=== PATIENT | female | born 2005 | race Caucasian/White ===

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

== ENCOUNTER 2024-04-05 14:36 | Emergency (ER) | payer OTHER ==
--- OUTSIDE RECORDS SUMMARY | 2024-04-05 14:41 | XMS REPORT | Continuity of Care Document ---
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 Role Phone PCP, PATIENT DOES NOT HAVE A Primary Care Physic SULMA Drummond Attending Clinician Unavailable GAVIN RIVERA Attending Clinician GAVIN Bradley Attending Clinician Andrea landry Payers Payer Name Policy Type Policy Number Effective Date Expirati on Date Source [facility] [id number] 2022 00:00:00 Allergies, Adverse Reactions, Alerts Allergy Name Allergy Type Status Severity Reaction(s) Onset Date Inactive Date Treating Clinician Comments Source NO KNOWN ALLERGIE S Drug Class Active [facility] Encounters Start Date/Time End Date/Time Encounter Type Admission Type Attending Clinicians Care Facility Care Department Encounter ID Source 2023-12-26 14:30:00 2023-12-26 14:30:00 Outpatient SULMA ANGELES [facility] [id number] [facility] 2022-11-29 15:30:00 2022-11-29 15:30:00 Outpatient GAVIN GONZALEZ CHERYAL [facility] [id number] [facility]
--- NOTE | 2024-04-05 15:45 | RAD REPORT ---
EXAM: Transvaginal OB HISTORY: abd pain, 8w COMPARISON: None TECHNIQUE: Multiple grayscale and color Doppler images were obtained in a transvaginal pelvic ultraso und. Spectral analysis of the Doppler waveforms of the ovaries were performed. FINDINGS: UTERUS: There is an intrauterine gestational sac. This contains a yolk sac and pole. [place]-rump length: 0.4 cm which estimates gestational age at 6 week 1 day. A heart rate is detected at 123 bpm. Small subchorionic hemorrhage No free fluid is seen in the pelvis. RIGHT OVARY: Normal flow without focal mass. LEFT OVARY: Normal flow without focal mass. IMPRESSION: Single live intrauterine with estimated age of 6 week 1 day. Small subchorionic hemorrhage which is usually of little significance.
[2024-04-05 17:04] LABS: Absolute Eosinophils 0.1 K/uL (0-0.5); Absolute Lymphocytes (CBC) 1.6 K/uL (0.7-4.9); Absolute Monocytes 0.8 K/uL (0.1-1.3); Absolute Neutrophil 5.2 K/uL (1.8-8.0); Basophils % 0.5 % (0-1.3); Eosinophils % 1.2 % (0-4.4); Hematocrit 39.8 % (36.0-45.0); Hemoglobin 13.7 g/dL (12.0-15.0); Lymphocytes % 21.1 % (15.3-44.8); MCH 30.8 pg (27.0-35.0); MCHC 34.4 g/dL (32.0-36.0); MCV 89.5 fL (80-100); MPV 9.3 fL (7.6-11.3); Neutrophils % 67.2 % (41.7-73.7); Platelets 228 thou/uL (152-406); RBC Red Blood Cell Count 4.45 M/uL (3.86-4.86); Red Cell Distribution Width 13.2 % (12.1-15.2)
[2024-04-05 17:26] LABS: Specific Gravity 1.007 (1.005-1.030); Sqamous Epithelial <5 /HPF (None Seen); Urine Bacteria <20 /HPF (<20); Urine Bilirubin NEGATIVE (Negative); Urine Blood Negative (Negative); Urine Clarity Turbid (Clear); Urine Color Light-Yellow (Yellow); Urine Culture Reflex Order NOT NEEDED; Urine Glucose NEGATIVE (Negative); Urine Ketones NEGATIVE (Negative); Urine Micro Reflex YN NO BILL MICROSCOPIC; Urine Nitrite NEGATIVE (Negative); Urine Protein NEGATIVE (Negative); Urine RBC <5 /HPF (None Seen); Urine Urobilinogen Normal (Normal); Urine WBC <5 /HPF (<5); Urine WBC Clump Rare /HPF (None Seen); Urine Yeast (Budding) Trace /HPF (None Seen); Urine pH 6.5 (5.0-7.0)
[2024-04-05 17:36] LABS: Anion Gap 8.5 mEq/L (5.0-15.0); Potassium 3.5 mEq/L (3.5-5.1)
--- NOTE | 2024-04-05 20:03 | ER ---
Nurse's Notes [facility] Name: Vandana Lynn Age: 19 yrs Sex: Female : 2005 Arrival Date: 04/05/2024 Time: 14:36 Bed 11 Private MD: Diagnosis: 6 Weeks ;Subchorionic Hemorrhage Presentation: 04/05 15:02 Chief complaint: Patient states: positive test on 03/20/2024. Reports having aa5 lower abdominal pain that began today, denies vaginal bleeding. Coronavirus screen: At this time, the client does not indicate any symptoms associated with coronavirus-19. Ebola Screen: Patient denies travel to an Ebola-affected area in the 21 days before illness onset. Initial Sepsis Screen: Does the patient meet any 2 criteria? No. Patient's initial sepsis screen is negative. Does the patient have a suspected source of infection? No. Patient's initial sepsis screen is negative. Risk Assessment: Do you want to hurt yourself or someone else? Patient reports no desire to harm self or others. Onset of symptoms was April 05, 2024. 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 - Infectious Disease History:: Denies. - Social history:: Smoking status: Reported history of juuling and/or vaping. Screenin:00 [facility] ED Fall Risk Assessment (Adult) History of falling in the last 3 months, me1 including since admission No falls in past 3 months (0 pts) Confusion or Disorientation No (0 pts) Intoxicated or Sedated No (0 pts) Impaired Gait No (0 pts) Mobility Assist Device Used No (0 pt) Altered Elimination No (0 pt) Score/Fall Risk Level 0 - 2 = Low Risk Maintained a safe environment, Provided non-skid footwear, Hourly rounding (assess needs \T\ fall precautionary measures) done. Abuse screen: Denies threats or abuse. Nutritional screening: No deficits noted. Tuberculosis screening: No symptoms or risk factors identified. Assessment: 17:00 General: Appears comfortable, well groomed, well developed, well nourished, Behavior is me1 calm, cooperative, appropriate for age, Reports positive test on 03/20/2024. Reports having lower abdominal pain that began today, denies vaginal bleeding. Pain: Complains of pain in suprapubic area Pain does not radiate. Pain currently is 3 out of 10 on a pain scale. Quality of pain is described as crampy, Pain began gradually, Is continuous. Neuro: Level of Consciousness is awake, alert, obeys commands, Oriented to person, place, time, situation, Appropriate for age. Cardiovascular: Patient's skin is warm and dry. Respiratory: Airway is patent Respiratory effort is even, unlabored, Respiratory pattern is regular, symmetrical. GI: Abdomen is non-distended, Bowel sounds present X 4 quads. Abd is soft X 4 quads Reports lower abdominal pain. : No signs and/or symptoms were reported regarding the genitourinary system. EENT: No signs and/or symptoms were reported regarding the EENT system. Derm: Skin is intact, is healthy with good turgor, Skin is pink, warm \T\ dry. Musculoskeletal: No signs and/or symptoms reported regarding the musculoskeletal system. Vital Signs: 15:02 BP 129 / 84; Pulse 83; Resp 18; Temp 97.5(TE); Pulse Ox 97% on R/A; Weight 60.78 kg aa5 (R); Height 5 ft. 4 in. (R); 20:08 BP 112 / 55; Pulse 57; Resp 18; Temp 98.4; Pulse Ox 100% ; me1 15:02 Body Mass Index 23.00 (60.78 kg, 162.56 cm) aa5 ED Course: 14:39 Patient arrived in ED. mg5 14:48 Jayjay Balbuena MD is Attending Physician. ec2 15:02 Arm band placed on. aa5 15:03 Triage completed. aa5 15:40 Transvaginal OB US In Process Unspecified. EDMS 16:55 Ngoc Costa, PITER is Primary Nurse. me1 16:56 HCG-Quantitative Sent. nh2 16:56 BMP Sent. nh2 16:56 CBC with Diff Sent. nh2 16:56 Inserted saline lock: 20 gauge in right antecubital area, using aseptic technique. nh2 Blood collected. Flushed with 10 mL NS. 17:00 Patient has correct armband on for positive identification. Bed in low position. Call me1 light in reach. Side rails up X2. Provided Education on: POC. Verbalized understanding . Client placed on continuous cardiac and pulse oximetry monitoring. NIBP monitoring applied. Pulse ox on. NIBP on. 17:00 No provider procedures requiring assistance completed. me1 18:12 Seth Chery PA is PHCP. cp 18:59 Abo/rh Typing Sent. me1 19:20 Abo/rh Typing Sent. me1 20:09 IV discontinued, intact, bleeding controlled, No redness/swelling at site. Pressure me1 dressing applied. Administered Medications: No medications were administered Medication: 17:00 VIS not applicable for this client. me1 Outcome: 20:02 Discharge ordered by . cp 20:09 Discharged to home ambulatory, with significant other, me1 20:09 Condition: stable 20:09 Discharge instructions given to patient, significant other, Instructed on discharge instructions, follow up and referral plans. Demonstrated understanding of instructions, follow-up care, 20:09 Patient left the ED. me1 Signatures: Dispatcher [employer] Brenda Booker, RN RN aa5 Seth Chery PA PA cp Ngoc Costa RN RN me1 Paulette Davis mg5 Jayjay Balbuena MD MD ec2 Demetris Easley, Raheem nh2 Corrections: (The following items were deleted from the chart) 17:38 15:02 Chief complaint: Patient states: positive test on 03/20/2024. Reports me1 having lower abdominal pain that began today, denies vaginal bleeding. aa5
--- NOTE | 2024-04-05 20:03 | EDPHYS ---
Physician Documentation [facility] Name: Vnadana Lynn Age: 19 yrs Sex: Female : 2005 Arrival Date: 04/05/2024 Time: 14:36 Bed 11 Private MD: ED Physician Jayjay Balbuena HPI: 04/05 15:33 This 19 yrs old Female presents to ER via Ambulatory with complaints of [id number], ec2 Abdominal Pain, Pelvic Pain. 15:33 Arrives today due to concern for pelvic pain in the setting of positive at-home ec2 test at approximately 2 to 3 weeks ago. No vaginal bleeding. No previous care.. 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 - Infectious Disease History:: Denies. - Social history:: Smoking status: Reported history of juuling and/or vaping. ROS: 15:33 Constitutional: as per hpi ec2 Exam: 15:33 Constitutional: GEN: NAD Head: atraumatic Eyes: EOMI Ears: External ears are ec2 normal. CV: regular rate LUNGS: no respiratory distress ABD: non-distended SKIN: no evidence of rashes MSK: no evidence of trauma Vital Signs: 15:02 BP 129 / 84; Pulse 83; Resp 18; Temp 97.5(TE); Pulse Ox 97% on R/A; Weight 60.78 kg aa5 (R); Height 5 ft. 4 in. (R); 20:08 BP 112 / 55; Pulse 57; Resp 18; Temp 98.4; Pulse Ox 100% ; me1 15:02 Body Mass Index 23.00 (60.78 kg, 162.56 cm) aa5 MDM: 15:33 Data reviewed: vital signs. ED course: Patient arrives today for pelvic pain in the ec2 setting of positive at-home test. Will obtain lab work and ultrasound. Differential includes normal , ectopic , miscarriage.. 15:40 Medical Screening Exam initiated ec2 16:43 ED course: Ultrasound shows single live IUP at approximately 6 weeks and 5 days and ec2 small subchorionic hemorrhage.. 17:47 ED course: Lab work is unrevealing, pending ABO Rh.. ec2 18:10 ED course: With time patient with pending ABO Rh.. ec2 04/05 14:49 Order name: UAM; Complete Time: 17:38 ec2 04/05 14:49 Order name: CBC with Diff; Complete Time: 17:20 ec2 04/05 14:49 Order name: BMP; Complete Time: 18:10 ec2 04/05 14:49 Order name: HCG-Quantitative; Complete Time: 18:10 ec2 04/05 17:38 Order name: Abo/rh Typing; Complete Time: 20:01 ec2 04/05 14:49 Order name: Transvaginal OB US; Complete Time: 16:42 ec2 Administered Medications: No medications were administered Disposition Summary: 04/05/24 20:02 Discharge Ordered Notes: Location: Home cp Condition: Stable cp Diagnosis - 6 Weeks cp - Subchorionic Hemorrhage cp Followup: ec2 - With: Private Physician - When: - Reason: Re-evaluation by your physician Discharge Instructions: - Subchorionic Hematoma cp - Discharge Summary Sheet ec2 - First Trimester of , Oiem-bi-Lhio ec2 Forms: - Medication Reconciliation Form cp - Antibiotic Education cp - Prescription Opioid Use cp - Patient Portal Instructions cp - Leadership Thank You Letter cp Signatures: Dispatcher [employer] Brenda Booker RN RN aa5 Seth Chery PA PA cp Jayjay Balbuena MD MD ec2 Corrections: (The following items were deleted from the chart) 14:49 14:49 Urinalysis W/Microscopic+U.LAB.BRZ ordered. EDMS EDMS 14:49 14:49 CBC+H.LAB.BRZ ordered. EDMS EDMS 14:49 14:49 BASIC METABOLIC PANEL+C.LAB.BRZ ordered. EDMS EDMS 14:49 14:49 QUANTITATIVE HCG+C.LAB.BRZ ordered. EDMS EDMS 14:50 14:50 Transvaginal Ob+US.RAD.BRZ ordered. EDMS EDMS
[2024-04-05 20:57] VITALS: BP 112/55; TEMP 98.4; O2SAT 100
== END 2024-04-05 20:09 | disposition home or self-care (01) ==
LOC: ER 14:36
DX: O20.8 Other hemorrhage in early pregnancy (principal); Z3A.01 Less than 8 weeks gestation of pregnancy
CPT/HCPCS: 36415; 76817; 80048; 81001; 84702; 85025; 86900; 86901; 99284

== ENCOUNTER 2024-07-15 15:48 | Emergency (ER) | payer OTHER ==
--- OUTSIDE RECORDS SUMMARY | 2024-07-15 15:52 | XMS REPORT | Continuity of Care Document ---
Author Name Unknown Address [address] [facility] [address] [place] [address] [facility] thconnect Address [address] [facility] 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 Role Phone Pcp, Patient Does Not Have A Primary Care Physic mason ALAINA BULL Attending Clinician Unavail able Adela WHAlaina VILLAFUERTE Attending Clinician + Ultrasound, Lauro-Mfm Attending Clinician HARINDER Clark Attending Clinician UnavailSULMA Rogers Attending Clinician GAVIN Cortes Attending Clinician GAVIN Bradley Attending Clinician Andrea landry Payers Payer Name Policy Type Policy Number Effective Date Expirati on Date Source [facility] [id number] 2022 00:00:00 Problems Condition Name Condition Details Condition Category Status Onset Date Resolution Date Last Treatment Date Treating Clinician Comments Source Supervisio n of high risk in first trimester Supervisio n of high risk in first trimester Disease Active 2023-06 00:00: 00 [facility] Allergies, Adverse Reactions, Alerts Allergy Name Allergy Type Status Severity Reaction(s) Onset Date Inactive Date Treating Clinician Comments Source NO KNOWN ALLERGIE S Drug Class Active [facility] Social History Social Habit Start Date Stop Date Quantity Comments Source ASSERTION 2024-03-03 00:00:00 [facility] Alcoholic beverage intake 2024-06-27 00:00:00 2024-06-27 00:00:00 Ex-drinker (finding) [facility] Tobacco use and exposure 2024-04-30 00:00:00 2024-04-30 00:00:00 Smokeless tobacco non-user [facility] History of Social function 2024-04-30 00:00:00 2024-04-30 00:00:00 [facility] Sex assigned at 2005 00:00:00 2005 00:00:00 [facility] Smoking Status Start Date Stop Date Source Never smoked tobacco [facility] Medications Ordered Medication Name Filled Medication Name Start Date Stop Date Current Medication? Ordering Clinician Indication Dosage Frequency Signature (SIG) Comments Components Source Nitrofurant oin&Nit. Macrocryst (MACROBID) 100 mg capsule 2023-06 00:00: 00 06-07 05:59 :00 Yes [id number] 100mg Take 1 capsule by mouth in the morning and 1 capsule in the evening. Do all this for 10 days. [facility] PNV 67-iron ps-folate no.1-dha (VITAFOL ULTRA) 29 mg iron- 1 mg-200 mg Cap 2023-06 00:00: 00 Yes [id number] 1{each} Take 1 Each by mouth in the morning. [facility] Vital Signs Vital Name Observation Time Observation Value Comments S ource Systolic blood pressure 2024-06-27 21:03:00 134 mm[Hg] [facility] Diastolic blood pressure 2024-06-27 21:03:00 63 mm[Hg] [facility] Heart rate 2024-06-27 21:03:00 62 /[facility] Body temperature 2024-06-27 21:03:00 36.94 Rosalind [facility] Respiratory rate 2024-06-27 21:03:00 16 /min [facility] Body height 2024-06-27 21:03:00 162.6 cm [facility] Body weight 2024-06-27 21:03:00 65.953 kg [facility] BMI 2024-06-27 21:03:00 24.96 kg/m2 [facility] Systolic blood pressure 2024-05-27 20:11:00 136 mm[Hg] [facility] Diastolic blood pressure 2024-05-27 20:11:00 78 mm[Hg] [facility] Heart rate 2024-05-27 20:11:00 80 /min [facility] Body temperature 2024-05-27 20:11:00 36.5 Rosalind [facility] Respiratory rate 2024-05-27 20:11:00 16 /min [facility] Body weight 2024-05-27 20:11:00 63.186 kg [facility] BMI 2024-05-27 20:11:00 23.91 kg/m2 [facility] BMI 2024-04-30 19:19:00 23.17 kg/m2 [facility] Systolic blood pressure 2024-04-30 19:19:00 124 mm[Hg] [facility] Diastolic blood pressure 2024-04-30 19:19:00 58 mm[Hg] [facility] Heart rate 2024-04-30 19:19:00 61 /min [facility] Body temperature 2024-04-30 19:19:00 36.61 Rosalind [facility] Respiratory rate 2024-04-30 19:19:00 16 /min [facility] Body height 2024-04-30 19:19:00 162.6 cm [facility] Body weight 2024-04-30 19:19:00 61.236 kg [facility] Procedures Procedure Date / Time Performed Performing Clinicia n Source POCT URINALYSIS 2024-06-27 21:05:00 Alaina Bull [facility] SECOND AND THIRD TRIMESTER ULTRASOUND 2024-06-12 21:11:00 Alaina Bull [facility] POCT URINALYSIS 2024-05-27 00:00:00 Alaina Bull [facility] POCT TEST 2024-04-30 19:12:00 Brent Bull [facility] POCT URINALYSIS W/O SPECIFIC GRAVITY 2024-04-30 19:12:00 Alaina Bull [facility] Encounters Start Date/Time End Date/Time Encounter Type Admission Type Attending [facility] Care Facility Care Department Encounter ID Source 2024-07-15 00:00:00 2024-07-15 13:41:55 Telephone Alaina Bull [facility] [employer] [id number] [id number] [id number] [id number] [facility] 2024-06-27 15:00:00 2024-06-27 15:15:00 Routine Visit Alaina Bull [facility] [employer] [facility] [id number] [id number] [id number] [id number] [facility] 2024-06-27 15:00:00 2024-06-27 15:00:00 Outpatient R ALAINA BULL [facility] [id number] [facility] 2024-06-25 14:45:00 2024-06-25 14:45:00 Outpatient R ALAINA BULL [facility] [id number] [facility] 2024-06-13 00:00:00 2024-06-13 11:56:15 Abstract Alaina Bull [facility] [employer] [facility] [id number] [id number] [id number] [id number] [facility] 2024-06-12 15:00:00 2024-06-12 15:36:53 Patient Care Visit Ultrasound, Ang-Mfm Alaina Bull [facility] [employer] [facility] 1..840.114 350.1.13.10 [id number] [id number] [facility] 2024-06-12 15:00:00 2024-06-12 15:36:53 Outpatient P JANICE BULLOLA [facility] [id number] [facility] 2024-05-27 14:15:00 2024-05-27 14:48:42 Outpatient R TYLERTADEORADHA ALAINA [facility] [id number] [facility] 2024-05-27 14:15:00 2024-05-27 14:48:42 Routine Visit Alaina Bull PAPRISCILA [employer] [facility] 1..840.114 350.1.13.10 [id number] [id number] [facility] 2024-05-15 00:00:00 2024-05-15 14:30:06 Telephone Adela Alaina Dao [facility] [employer] [facility] 1..840.114 350.1.13.10 [id number] [id number] [facility] 2024-05-07 00:00:00 2024-05-07 14:57:00 Telephone Alaina Bull PAPRISCILA [employer] [facility] 1..840.114 350.1.13.10 [id number] [id number] [facility] 2024-04-30 13:45:00 2024-04-30 14:14:52 Outpatient R TYLERTADEORADHAAJNICEALAINA [facility] [id number] [facility] 2024-04-30 13:45:00 2024-04-30 14:14:52 Initial Visit Alaina Bull PAPRISCILA [employer] [facility] 1..840.114 350.1.13.10 [id number] [id number] [facility] 2024-04-22 13:45:00 2024-04-22 13:45:00 Outpatient R HARINDER BAUTISTA [facility] [id number] [facility] 2023-12-26 14:30:00 2023-12-26 14:30:00 Outpatient R SULMA ARANGO [facility] [id number] [facility] 2022-11-29 15:30:00 2022-11-29 15:30:00 Outpatient R GAVIN RIVERA CHERYAL [facility] [id number] [facility] Results Test Description Test Time Test Comments Results Result Co mments Source [facility] W SPECIFIC [id number] 20:12:00* Test Item Value Reference Range Interpretation Comme nts POCT U SP GRAV (test code = 3255) . 1.005-1.025 POCT PH U (test code = 3254) . 5-8 POCT U LEUK EST (test code = 3263) . Negative - N egative POCT U NIT (test code = 3262) . Negative - Negati ve POCT U PROT (test code = 3259) trace Negative - Negat chandan POCT U GLU (test code = 3256) normal Negative - Negati ve POCT U KETONE (test code = 3258) . Negative - Neg ative POCT U UROBILI (test code = 3260) . 0.2-1 POCT U BILI (test code = 3261) . Negative - Negat chandan POCT U BLD (test code = 3257) . Negative - Negati ve POCT U COLOR (test code = 3266) . POCT U APPEAR (test code = 3267) . [facility] w/o Specific [id number] 19:12:00* Test Item Value Reference Range Interpretation Comme nts POCT PH U (test code = 3254) 7 mg/dl 5-8 POCT U LEUK EST (test code = 3263) trace Negative - Negative POCT U NIT (test code = 3262) + Negative - Negati ve POCT U PROT (test code = 3259) trace Negative - Negat chandan POCT U GLU (test code = 3256) neg Negative - Negati ve POCT U KETONE (test code = 3258) neg Negative - Neg ative POCT U BLD (test code = 3257) 250 Negative - Negati ve [facility] [id number] 19:12:00* Test Item Value Reference Range Interpretation Comme nts POCT PREG (test code = 1605) Positive On board controls acceptable with C Line (test code = 3574) Yes POCT PREG LOT # (test code = 3575) POCT PREG TEST DATE ( test code = 3576) [facility]
[2024-07-15 16:50] LABS: Absolute Eosinophils 0.1 K/uL (0-0.5); Absolute Lymphocytes (CBC) 1.3 K/uL (0.7-4.9); Absolute Monocytes 0.8 K/uL (0.1-1.3); Absolute Neutrophil 7.8 K/uL (1.8-8.0); Basophils % 0.2 % (0-1.3); Eosinophils % 0.7 % (0-4.4); Hematocrit 33.5 % (36.0-45.0); Hemoglobin 11.8 g/dL (12.0-15.0); Lymphocytes % 12.7 % (15.3-44.8); MCH 31.5 pg (27.0-35.0); MCHC 35.3 g/dL (32.0-36.0); MCV 89.3 fL (80-100); MPV 8.6 fL (7.6-11.3); Monocytes % 7.8 % (3.3-12.3); Neutrophils % 78.6 % (41.7-73.7); Platelets 189 thou/uL (152-406); RBC Red Blood Cell Count 3.75 M/uL (3.86-4.86); Red Cell Distribution Width 14.5 % (12.1-15.2)
--- NOTE | 2024-07-15 16:59 | RAD REPORT ---
Abdomen Exam Limited: 07/15/2024 4:53 PM CLINICAL HISTORY: epigastric abd pain, eval for cholelithiasis STUDY: Limited right upper quadrant ultrasound of abdomen. COMPARISON: None. FINDINGS: Liver: Limited evaluation but grossly unremarkable. Bile ducts: No intrahepatic or extrahepatic biliary ductal dilatation. Common bile duct measures 3 mm. Gallbladder: Normal. IMPRESSION: Unremarkable exam.
[2024-07-15 17:11] LABS: Albumin 3.1 g/dL (3.4-5.0); Albumin/Globulin Ratio 0.9 (1.1-1.8); Anion Gap 11.2 mEq/L (5.0-15.0); Bilirubin Total 0.3 mg/dL (0.2-1.0); Globulin 3.6 g/dL (2.3-3.5); Potassium 3.2 mEq/L (3.5-5.1); Protein, Total 6.7 g/dL (6.4-8.2)
--- NOTE | 2024-07-15 17:50 | ER ---
Nurse's Notes [facility] Name: Vandana Lynn Age: 19 yrs Sex: Female : 2005 Arrival Date: 07/15/2024 Time: 15:48 Bed 13 Private MD: Diagnosis: Other cholelithiasis without obstruction Presentation: 07/15 16:15 Coronavirus screen: At this time, the client does not indicate any symptoms associated aa5 with coronavirus-19. Ebola Screen: Patient denies travel to an Ebola-affected area in the 21 days before illness onset. Initial Sepsis Screen: Does the patient meet any 2 criteria? No. Patient's initial sepsis screen is negative. Does the patient have a suspected source of infection? No. Patient's initial sepsis screen is negative. Risk Assessment: Do you want to hurt yourself or someone else? Patient reports no desire to harm self or others. Onset of symptoms was July 2024. 16:15 Acuity: WILLY 3 aa5 16:15 Method Of Arrival: Ambulatory aa5 16:15 Chief complaint: Patient states: epigastric pain episode that lasted approximately 1 hr aa5 last night. Pt reports being 21 weeks . 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 - Infectious Disease History:: Denies. - Social history:: Smoking status: Reported history of juuling and/or vaping. - Family history:: not pertinent. - Hospitalizations: : No recent hospitalization is reported. Screenin:42 [facility] ED Fall Risk Assessment (Adult) History of falling in the last 3 months, ko1 including since admission No falls in past 3 months (0 pts) Confusion or Disorientation No (0 pts) Intoxicated or Sedated No (0 pts) Impaired Gait No (0 pts) Mobility Assist Device Used No (0 pt) Altered Elimination No (0 pt) Score/Fall Risk Level 0 - 2 = Low Risk Oriented to surroundings, Maintained a safe environment, Educated pt \T\ family on fall prevention, incl call for assistance when getting out of bed, Assessed \T\ reinforced patient's understanding of fall precautions, Hourly rounding (assess needs \T\ fall precautionary measures) done. Abuse screen: Denies threats or abuse. Denies injuries from another. Nutritional screening: No deficits noted. Tuberculosis screening: No symptoms or risk factors identified. Assessment: 16:40 General: Appears in no apparent distress. Behavior is calm, cooperative, appropriate ko1 for age. Pain: Denies pain. Neuro: No deficits noted. Cardiovascular: No deficits noted. Respiratory: No deficits noted. GI: Bowel sounds present X 4 quads. Abd is soft and non tender X 4 quads. : No deficits noted. No signs and/or symptoms were reported regarding the genitourinary system. EENT: No deficits noted. No signs and/or symptoms were reported regarding the EENT system. Derm: No deficits noted. No signs and/or symptoms reported regarding the dermatologic system. Musculoskeletal: No deficits noted. No signs and/or symptoms reported regarding the musculoskeletal system. Vital Signs: 16:15 BP 139 / 73; Pulse 90; Resp 18 S; Temp 97.7(TE); Pulse Ox 97% on R/A; Weight 67.09 kg aa5 (M); Height 5 ft. 3 in. (R); 18:01 BP 134 / 70; Pulse 88; Resp 16; Pulse Ox 100% ; ko1 16:15 Body Mass Index 26.20 (67.09 kg, 160.02 cm) aa5 ED Course: 15:55 Patient arrived in ED. mr 16:14 Arm band placed on. aa5 16:16 Triage completed. aa5 16:16 Abel Butler MD is Attending Physician. rn 16:22 Giulia Ugarte RN is Primary Nurse. ko1 16:40 No provider procedures requiring assistance completed. ko1 16:42 Patient has correct armband on for positive identification. Bed in low position. Call ko1 light in reach. Side rails up X2. Provided Education on: labs. Pulse ox on. NIBP on. Door closed. Noise minimized. Lights dimmed. Warm blanket given. Pillow given. 16:42 Initial lab(s) drawn, by me, sent to lab. Inserted saline lock: 18 gauge in right ko1 antecubital area, using aseptic technique. Blood collected. Flushed with 10 mL NS. 16:44 CBC with Diff Sent. ko1 16:44 CMP Sent. ko1 16:44 Lipase Sent. ko1 16:55 US Abdomen Limited In Process Unspecified. EDMS 18:01 IV discontinued, intact, bleeding controlled, No redness/swelling at site. Pressure ko1 dressing applied. Administered Medications: No medications were administered Medication: 16:42 VIS not applicable for this client. ko1 Outcome: 17:50 Discharge ordered by . rn 18:08 Discharged to home ambulatory, with family, ko1 18:08 Condition: stable 18:08 Discharge instructions given to patient, Instructed on discharge instructions, follow up and referral plans. Demonstrated understanding of instructions, follow-up care, 18:08 Patient left the ED. ko1 Signatures: Dispatcher [employer] EDMS Gladis Flores, Reg Reg mr Abel Butler MD MD rn Calderon, Audri, RN RN aa5 Giulia Ugarte RN RN ko1 Corrections: (The following items were deleted from the chart) 16:18 16:15 BP 139 / 73; Pulse 90bpm; Resp 18bpm; Spontaneous; Pulse Ox 97% RA; Temp 97.7F aa5 Temporal; Height 5 ft. 3 in. Reported; aa5
--- NOTE | 2024-07-15 17:50 | EDPHYS ---
Physician Documentation [facility] Name: Vandana Lynn Age: 19 yrs Sex: Female : 2005 Arrival Date: 07/15/2024 Time: 15:48 Bed 13 Private MD: ED Physician Abel Butler HPI: 07/15 16:34 This 19 yrs old Female presents to ER via Ambulatory with complaints of 21 wks rn , Abdominal Pain. 16:34 The patient presents with abdominal pain in the epigastric area. Onset: The rn symptoms/episode began/occurred last night. The symptoms do not radiate. Associated signs and symptoms: Pertinent positives: nausea, Pertinent negatives: blood in stools, chest pain, constipation, diarrhea, dysuria, fever, vaginal discharge. The symptoms are described as achy, crampy. Modifying factors: The symptoms are alleviated by nothing, the symptoms are aggravated by nothing. Severity of pain: At its worst the pain was moderate in the emergency department the pain has resolved. The patient has not experienced similar symptoms in the past. The patient has not recently seen a physician. 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 - Infectious Disease History:: Denies. - Social history:: Smoking status: Reported history of juuling and/or vaping. - Family history:: not pertinent. - Hospitalizations: : No recent hospitalization is reported. ROS: 16:59 Constitutional: Negative for fever, chills, and weight loss, Neck: Negative for injury, rn pain, and swelling, Cardiovascular: Negative for chest pain, palpitations, and edema, Respiratory: Negative for shortness of breath, cough, wheezing, and pleuritic chest pain, Abdomen/GI: Positive for epigastric abdominal pain Back: Negative for injury and pain, : Negative for injury, bleeding, discharge, and swelling, MS/Extremity: Negative for injury and deformity, Neuro: Negative for headache, weakness, numbness, tingling, and seizure, Exam: 16:59 Constitutional: This is a well developed, well nourished patient who is awake, alert, rn and in no acute distress. Cardiovascular: Regular rate and rhythm. No pulse deficits. Respiratory: No increased work of breathing, no retractions or nasal flaring. Abdomen/GI: Soft, nontender, negative Rodriguez sign. No guarding or rebound Vital Signs: 16:15 BP 139 / 73; Pulse 90; Resp 18 S; Temp 97.7(TE); Pulse Ox 97% on R/A; Weight 67.09 kg aa5 (M); Height 5 ft. 3 in. (R); 18:01 BP 134 / 70; Pulse 88; Resp 16; Pulse Ox 100% ; ko1 16:15 Body Mass Index 26.20 (67.09 kg, 160.02 cm) aa5 MDM: 16:16 Medical Screening Exam initiated rn 17:49 Differential diagnosis: cholecystitis, Cholelithiasis, gastritis. Data reviewed: vital rn signs, nurses notes, lab test result(s), radiologic studies, ultrasound, and as a result, I will discharge patient. Counseling: I had a detailed discussion with the patient and/or guardian regarding the historical points, exam findings, and any diagnostic results supporting the discharge/admit diagnosis, lab results, radiology results, the need for outpatient follow up, to return to the emergency department if symptoms worsen or persist or if there are any questions or concerns that arise at home. Response to treatment: the patient's symptoms have resolved after treatment, the patient's condition has returned to base line, the patient is now symptom free, and as a result, I will discharge patient. Special discussion: I discussed with the patient/guardian in detail that at this point there is no indication for admission to the hospital. It is understood, however, that if the symptoms persist or worsen the patient needs to return immediately for re-evaluation. Based on the history and exam findings, there is no indication for further emergent testing or inpatient evaluation. I discussed with the patient/guardian the need to see the general surgeon for further evaluation of the symptoms. ED course: Ultrasound shows layering gallbladder stones but no signs of Cholecystitis. Patient has been pain-free since last night. No indication for emergent admission or surgery. Will discharge home with return precautions.. 07/15 16:28 Order name: CBC with Diff; Complete Time: 17:00 rn 07/15 16:28 Order name: CMP; Complete Time: 17:39 rn 07/15 16:28 Order name: Lipase; Complete Time: 17:39 rn 07/15 16:28 Order name: US Abdomen Limited; Complete Time: 17:39 rn 07/15 16:28 Order name: IV Saline Lock; Complete Time: 16:44 rn 07/15 16:28 Order name: Labs collected and sent; Complete Time: 16:44 rn Administered Medications: No medications were administered Disposition Summary: 07/15/24 17:50 Discharge Ordered Notes: Location: Home rn Problem: new rn Symptoms: have improved rn Condition: Stable rn Diagnosis - Other cholelithiasis without obstruction rn Followup: rn - With: Private Physician - When: As needed - Reason: Recheck today's complaints, Re-evaluation by your physician Discharge Instructions: - Discharge Summary Sheet rn - Cholelithiasis rn Forms: - Medication Reconciliation Form rn - Antibiotic internet marketing assistant - Prescription Opioid Use rn - Patient Portal Instructions rn - Leadership Thank You Letter rn Signatures: Dispatcher [employer] EDMS Abel Butler MD MD rn Calderon, Audri, RN RN aa5 Corrections: (The following items were deleted from the chart) 16:28 16:28 CBC+H.LAB.BRZ ordered. EDMS EDMS 16:28 16:28 COMPREHENSIVE METABOLIC PANEL+C.LAB.BRZ ordered. EDMS EDMS 16:28 16:28 LIPASE+C.LAB.BRZ ordered. EDMS EDMS 16:28 16:28 Abdomen Limited+US.RAD.BRZ ordered. EDMS EDMS
[2024-07-15 22:12] VITALS: TEMP 97.7
[2024-07-15 22:13] VITALS: BP 134/70; O2SAT 100
== END 2024-07-15 18:08 | disposition home or self-care (01) ==
LOC: ER 15:48
DX: O99.612 Diseases of the digestive system complicating pregnancy, second trimester (principal); K80.80 Other cholelithiasis without obstruction; Z3A.21 21 weeks gestation of pregnancy
CPT/HCPCS: 36415; 76705; 80053; 83690; 85025; 99284

== ENCOUNTER 2024-08-08 02:52 | Emergency (ER) | payer OTHER ==
--- OUTSIDE RECORDS SUMMARY | 2024-08-08 02:55 | XMS REPORT | Continuity of Care Document ---
Author Name Unknown Address [address] [facility] [address] [place] [address] [facility] thconnect Address [address] [facility] 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 Name Role Phone Pcp, Patient Does Not Have A Primary Care Physic mason HARINDER BAUTISTA Attending Clinician Unavaila ALAINA Bullock Attending Clinician Unavail able Alaina Sanchez Attending Clinician + Doctor Unassigned, [place] Attending Clinician U navailable Ultrasound, Ang-Mfm Attending Clinician Unavaila ble SULMA ARANGO Attending Clinician Unavailable TRITSGAVIN MARIN Attending Clinician Unavaila ble GAVIN RIVERA Attending Clinician Unavaila ble Payers Payer Name Policy Type Policy Number Effective Date Expirati on Date Source [place] [employer] [id number] 2024 00:00:00 [facility] ST[facility] [id number] 2022 00:00:00 Problems Condition Name Condition Details Condition Category Status Onset Date Resolution Date Last Treatment Date Treating Clinician Comments Source Supervisio n of high risk in first trimester Supervisio n of high risk in first trimester Disease Active 2023-06 00:00: 00 [facility] Allergies, Adverse Reactions, Alerts Allergy Name Allergy Type Status Severity Reaction(s) Onset Date Inactive Date Treating Clinician Comments Source NO KNOWN ALLERGIE S Drug Class Active [facility] Social History Social Habit Start Date Stop Date Quantity Comments Source ASSERTION 2024-03-03 00:00:00 [facility] Alcoholic beverage intake 2024-06-27 00:00:00 2024-06-27 00:00:00 Ex-drinker (finding) [facility] Tobacco use and exposure 2024-04-30 00:00:00 2024-04-30 00:00:00 Smokeless tobacco non-user [facility] History of Social function 2024-04-30 00:00:00 2024-04-30 00:00:00 [facility] Sex assigned at 2005 00:00:00 2005 00:00:00 [facility] Smoking Status Start Date Stop Date Source Never smoked tobacco [facility] Medications Ordered Medication Name Filled Medication Name Start Date Stop Date Current Medication? Ordering Clinician Indication Dosage Frequency Signature (SIG) Comments Components Source Nitrofurant oin&Nit. Macrocryst (MACROBID) 100 mg capsule 2023-06 00:00: 00 06-07 05:59 :00 Yes [id number] 100mg Take 1 capsule by mouth in the morning and 1 capsule in the evening. Do all this for 10 days. [facility] PNV 67-iron ps-folate no.1-dha (VITAFOL ULTRA) 29 mg iron- 1 mg-200 mg Cap 2023-06 00:00: 00 Yes [id number] 1{each} Take 1 Each by mouth in the morning. [facility] Vital Signs Vital Name Observation Time Observation Value Comments S ournadine Systolic blood pressure 2024-07-25 21:54:00 118 mm[Hg] [facility] Diastolic blood pressure 2024-07-25 21:54:00 65 mm[Hg] [facility] Heart rate 2024-07-25 21:54:00 74 /min [facility] Body temperature 2024-07-25 21:54:00 36.39 Rosalind [facility] Body height 2024-07-25 21:54:00 162.6 cm [facility] Body weight 2024-07-25 21:54:00 68.629 kg [facility] BMI 2024-07-25 21:54:00 25.97 kg/m2 [facility] Systolic blood pressure 2024-06-27 21:03:00 134 mm[Hg] [facility] Diastolic blood pressure 2024-06-27 21:03:00 63 mm[Hg] [facility] Heart rate 2024-06-27 21:03:00 62 /min [facility] Body temperature 2024-06-27 21:03:00 36.94 Rosalind [facility] Respiratory rate 2024-06-27 21:03:00 16 /min [facility] Body height 2024-06-27 21:03:00 162.6 cm [facility] Body weight 2024-06-27 21:03:00 65.953 kg [facility] BMI 2024-06-27 21:03:00 24.96 kg/m2 [facility] Systolic blood pressure 2024-05-27 20:11:00 136 mm[Hg] [facility] Diastolic blood pressure 2024-05-27 20:11:00 78 mm[Hg] [facility] Heart rate 2024-05-27 20:11:00 80 /min [facility] Body temperature 2024-05-27 20:11:00 36.5 Rosalind [facility] Respiratory rate 2024-05-27 20:11:00 16 /min [facility] Body weight 2024-05-27 20:11:00 63.186 kg [facility] BMI 2024-05-27 20:11:00 23.91 kg/m2 Univ [facility] Systolic blood pressure 2024-04-30 19:19:00 124 mm[Hg] [facility] Diastolic blood pressure 2024-04-30 19:19:00 58 mm[Hg] [facility] Heart rate 2024-04-30 19:19:00 61 /min [facility] Body temperature 2024-04-30 19:19:00 36.61 Rosalind [facility] Respiratory rate 2024-04-30 19:19:00 16 /min [facility] Body height 2024-04-30 19:19:00 162.6 cm [facility] Body weight 2024-04-30 19:19:00 61.236 kg [facility] BMI 2024-04-30 19:19:00 23.17 kg/m2 [facility] Procedures Procedure Date / Time Performed Performing Clinicia n Source SECOND AND THIRD TRIMESTER ULTRASOUND 2024-07-19 20:36:00 Alaina Chapman [facility] POCT URINALYSIS 2024-06-27 21:05:00 Alaina Chapman [facility] SECOND AND THIRD TRIMESTER ULTRASOUND 2024-06-12 21:11:00 Alaina Chapman [facility] NIPT - NON-INVASIVE TEST RESULTS 2024-06-06 21:57:49 Doctor Unassigned, [place] [facility] NIPT - NON-INVASIVE TEST RESULTS 2024-06-04 22:33:14 Doctor Unassigned, [place] [facility] NIPT - NON-INVASIVE TEST RESULTS 2024-06-03 18:38:00 Doctor Unassigned, [place] [facility] POCT URINALYSIS 2024-05-27 00:00:00 Alaina Chapman [facility] POCT TEST 2024-04-30 19:12:00 Brent Chapman [facility] POCT URINALYSIS W/O SPECIFIC GRAVITY 2024-04-30 19:12:00 Alaina Chapman [facility] Encounters Start Date/Time End Date/Time Encounter Type Admission Type Attending Clinicians Care Facility Care Department Encounter ID Source 2024-08-23 08:00:00 2024-08-23 08:00:00 Outpatient R [facility] [id number] [facility] 2024-07-25 15:30:00 2024-07-25 16:15:08 Outpatient R ALAINA CHAPMAN [facility] [id number] [facility] 2024-07-25 15:30:00 2024-07-25 16:15:08 Routine Visit Alaina Chapman [facility] PATIENT CARE ASSOCIATE [facility] MATERNAL & CHILD [facility] 1.2.840.114 350.1.13.10 4.2.7.2.686 [id number] [facility] 2024-07-25 00:00:00 2024-07-25 13:04:27 Abstract Alania Chapman [facility] PATIENT CARE [facility]OCIATE [facility] & CHILD [facility] 1.2.840.114 350.1.13.10 4.2.7.2.686 [id number] [facility] 2024-07-19 00:00:00 2024-07-23 14:40:15 Telephone Alaina Chapman [facility] PATIENT CARE ASSOCIATE [facility] CHILD [facility] 1.2.840.114 350.1.13.10 4.2.7.2.686 [id number] [facility] 2024-06-03 00:00:00 2024-07-20 06:24:50 Orders Only Doctor Unassigned, [place] Doctor Unassigned, [place] [facility] 1.2.840.114 350.1.13.10 4.2.7.2.686 [id number] [facility] 2024-06-04 00:00:00 2024-07-20 06:24:28 Orders Only Doctor Unassigned, [place] Doctor Unassigned, [place] [facility] 1.2.840.114 350.1.13.10 4.2.7.2.686 [id number] [facility] 2024-06-06 00:00:00 2024-07-20 06:24:06 Orders Only Doctor Unassigned, [place] Doctor Unassigned, [place] [facility] 1.2.840.114 350.1.13.10 4.2.7.2.686 [id number] [facility] 2024-07-19 13:00:00 2024-07-19 14:38:09 Outpatient P ALAINA CHAPMAN [facility] [id number] [facility] 2024-07-19 13:00:00 2024-07-19 14:38:09 E Commerce Marketing Analyst Visit Ultrasound, Lauro-Alaina Rojas [facility] PATIENT CARE ASSOCIATE [facility] & CHILD [facility] 1.2.840.114 350.1.13.10 4.2.7.2.686 [id number] [facility] 2024-07-15 00:00:00 2024-07-15 13:41:55 Telephone Alaina Chapman [facility] PATIENT CARE ASSOCIATE [facility] & CHILD [facility] 1.2.840.114 350.1.13.10 4.2.7.2.686 [id number] [facility] 2024-06-27 15:00:00 2024-06-27 15:15:00 Routine Visit Alaina Chapman [facility] PATIENT CARE [facility]OC[facility] CHILD [facility] 1.20.114 350.1.13.10 4.2.7.2.686 [id number] [facility] 2024-06-27 15:00:00 2024-06-27 15:00:00 Outpatient R ALAINA CHAPMAN [facility] [id number] [facility] 2024-06-25 14:45:00 2024-06-25 14:45:00 Outpatient R ALAINA CHAPMAN [facility] [id number] [facility] 2024-06-13 00:00:00 2024-06-13 11:56:15 Abstract Alaina Chapman [facility] PATIENT CARE [facility]OCIATE [facility] CHILD [facility] 1.2.840.114 350.1.13.10 4.2.7.2.686 [id number] [facility] 2024-06-12 15:00:00 2024-06-12 15:36:53 E Commerce Marketing Analyst Visit Ultrasound, Lauro-Alaina Montanez [facility] PATIENT CARE ASSOCIATE [facility] & CHILD [facility] 1.2.840.114 350.1.13.10 4.2.7.2.686 [id number] [facility] 2024-06-12 15:00:00 2024-06-12 15:36:53 Outpatient P ALAINA CHAPMAN [facility] [id number] [facility] 2024-05-27 14:15:00 2024-05-27 14:48:42 Outpatient R ALAINA CHAPMAN [facility] [id number] [facility] 2024-05-27 14:15:00 2024-05-27 14:48:42 Routine Visit Alaina Chapman [facility] PATIENT CARE ASSOCIATE [facility] & CHILD [facility] 1..840.114 350.1.13.10 4.2.7.2.686 [id number] [facility] 2024-05-15 00:00:00 2024-05-15 14:30:06 Telephone Alaina Chapman [facility] PATIENT CARE ASSOCIATE [facility] & CHILD [facility] 1..840.114 350.1.13.10 4.2.7.2.686 [id number] [facility] 2024-05-07 00:00:00 2024-05-07 14:57:00 Telephone Alaina Chapman [facility] PATIENT CARE ASSOCIATE [facility] & CHILD [facility] 1..840.114 350.1.13.10 4.2.7.2.686 [id number] [facility] 2024-04-30 13:45:00 2024-04-30 14:14:52 Outpatient R ALAINA CHAPMAN [facility] [id number] [facility] 2024-04-30 13:45:00 2024-04-30 14:14:52 Initial Visit BandarfelibertoAlaina mejía [facility] PATIENT CARE ASSOCIATE [facility] MAT[facility]NAL & [facility] 1.2.840.114 350.1.13.10 4.2.7.2.686 [id number] [facility] 2024-04-22 13:45:00 2024-04-22 13:45:00 Outpatient HARINDER ZHANG [facility] [id number] [facility] 2023-12-26 14:30:00 2023-12-26 14:30:00 Outpatient SULMA ANGELES [facility] [id number] [facility] 2022-11-29 15:30:00 2022-11-29 15:30:00 Outpatient GAVIN GONZALEZ CHERYAL [facility] [id number] [facility] Results Test Description Test Time Test Comments Results Result Co mments Source [facility] - NON-INVASIVE TEST RESULTS 2024-06-06 21:57:49Ordered by an unspecified provider.[facility] - NON-INVASIVE TEST [id number] 22:33:14 Ordered by an unspecified provider.[facility] - NON- INVASIVE TEST [id number] 18:38:00[facility] 2024-05-27 20:12:00* Test Item Value Reference Range Interpretation [...] U APPEAR (test code = 3267) . [facility] Urinalysis w/o Specific [id number] 19:12:00* Test Item Value Reference Range Interpretation [...] = 3257) 250 Negative - Negati ve [facility] [id number] 19:12:00* Test Item Value Reference Range Interpretation Comme nts POCT PREG (test code = 1605) Positive On board controls acceptable with C Line (test code = 3574) Yes POCT PREG LOT # (test code = 3575) POCT PREG TEST DATE ( test code = 3576) [facility] Notes Date/Time Note Provider Source 2024-07-19 14:39:16 Patient states that she went to the ER and was told she has gallstones just wanted to let us know. AD CLIPPER Alin Covington [facility] 2024-07-15 13:35:53 Called pt, pt reports had episode of indigestion that radiated to her back. Pt states had cold chills and sweats during episode. Pt reports eating chili prior to episode. Pt denies any fever and or symptoms at this time. Educated pt on otc meds for heartburn or indigestion. Pt advised if episode occurs again and not resolved with over the counter meds, pt to follow up with er. Strict er warnings given. Verbalized understanding. Jaquelin Willson RN 07/15/24 1:41 PM AD CLIPPER Jaquelin Willson RN [facility] 2024-07-15 12:46:29 Blanche Gentile is a 19 year old female Pt states she had pressure under her sternum x last night, she was sweating, shivering and almost blacking out, better today but body sore. Would like to speak to nurse [phone] (home) AD CLIPPER Giulia Romero [facility] 2024-05-15 14:26:41 Pt reports cramping to lower abd, 4/10 pain. She has not taken any pain medication. Denies any bleeding or sharp stabbing pains to one side of abd. Instructed pt to try taking Tylenol to help relieve some pain, if it does not got away or gets worse to be evaluated at the ER. Pt verbalized understanding. Zuleika Mosquera LVN 05/15/2024 2:29 PM AD CLIPPER Zuleika Mosquera LVN [facility] 2024-05-15 14:18:55 Blanche Gentile is a 19 year old female is requesting to speak with a nurse. She says that she is having some cramping but no other symptoms. Not currently cramping at this time. Please call. IN Keller [facility] 2024-05-07 14:56:48 Called patient, notified patient positive for UTI. Educated patient on antibiotics, good perineal hygiene, and increasing fluids. Pt verbalized understanding. Zuleika Mosquera LVN 05/07/2024 2:56 PM AD CLIPPER Zuleika Mosquera LVN [facility] 2024-05-07 14:46:25 Please notify the patient of UTI, meds have been sent to the pharmacy. Please advise the patient on good perineal hygiene, drinking plenty of water, and completing the entire course of treatment. GÓMEZ Dominguez 05/07/2024 2:46 PM IN [facility]
[2024-08-08] MEDS ORDERED: ONDANSETRON 4 MG/2 ML VIAL ONE (03:34)
[2024-08-08] MEDS ORDERED: NA CHLORIDE 0.9% 1,000 ML ONE (03:34)
[2024-08-08 04:00] LABS: Absolute Eosinophils 0.1 K/uL (0-0.5); Absolute Lymphocytes (CBC) 1.7 K/uL (0.7-4.9); Basophils % 0.2 % (0-1.3); Eosinophils % 0.6 % (0-4.4); Hemoglobin 11.6 g/dL (12.0-15.0); Lymphocytes % 14.6 % (15.3-44.8); MCH 31.5 pg (27.0-35.0); MCHC 35.3 g/dL (32.0-36.0); MCV 89.4 fL (80-100); MPV 8.9 fL (7.6-11.3); Monocytes % 8.4 % (3.3-12.3); Neutrophils % 76.2 % (41.7-73.7); Platelets 170 thou/uL (152-406); RBC Red Blood Cell Count 3.69 M/uL (3.86-4.86); Red Cell Distribution Width 14.4 % (12.1-15.2)
[2024-08-08 04:04] LABS: Albumin 3.2 g/dL (3.4-5.0); Albumin/Globulin Ratio 0.9 (1.1-1.8); Anion Gap 10.2 mEq/L (5.0-15.0); Bilirubin Total 0.3 mg/dL (0.2-1.0); Globulin 3.5 g/dL (2.3-3.5); Potassium 3.2 mEq/L (3.5-5.1); Protein, Total 6.7 g/dL (6.4-8.2)
--- NOTE | 2024-08-08 05:19 | RAD REPORT ---
EXAM: US Abdomen Limited, Gallbladder CLINICAL HISTORY: The patient is 19 years old and is Female; Abdomen pain, gallbladder stones. TECHNIQUE: Real-time ultrasound of the right upper quadrant with image documentation. COMPARISON: No relevant prior studies available. FINDINGS: Gallbladder: Multiple stones visualized. Negative sonographic Rodriguez sign. No pericholecystic flu id. Gallbladder wall thickness 1.9 mm. Common bile duct: Unremarkable as visualized, 3.1 mm in diameter. No stones. No dilation. Pancreas: Unremarkable as visualized. IMPRESSION: Cholelithiasis. Electronically signed by: Payton Lowery MD 08/08/2024 05:[address] [facility] V2 Due to temporary technical issues with the [employer] reporting system, reports are being signed by the in-house radiologist without review as a courtesy to ensure prompt reporting the interpreting radiologist is fully responsible for the content of the report. Transcribed Date/Time: 08/08/2024 5:19 AM
--- NOTE | 2024-08-08 05:25 | EDPHYS ---
Physician Documentation [facility] Name: Vandana Lynn Age: 19 yrs Sex: Female : 2005 Arrival Date: 08/08/2024 Time: 02:52 Bed 3 Private MD: ED Physician Reg Lisa HPI: 08/08 03:23 This 19 yrs old Female presents to ER via Ambulatory with complaints of sp4 Gallbladder issue, Pain, 6months preg. 08/09 01:05 Patient presents with right upper quadrant abdominal pain associated with nausea. sp4 Reported 24 weeks EGA. 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 - Infectious Disease History:: Denies. - Social history:: Smoking status: Patient denies any tobacco usage or history of. - Family history:: not pertinent. ROS: 08/09 01:05 Constitutional: Negative for fever, chills, and weight loss, positive right upper sp4 quadrant abdominal pain All other systems are negative, Exam: 01:05 Constitutional: This is a well developed, well nourished patient who is awake, alert, sp4 and in no acute distress. Head/Face: Normocephalic, atraumatic. Eyes: Pupils equal round and reactive to light, extra-ocular motions intact. Lids and lashes normal. Conjunctiva and sclera are not injected. Cornea within normal limits. Periorbital areas with no swelling, redness, or edema. ENT: Nares patent. No nasal discharge, no septal abnormalities noted. Tympanic membranes are normal and external auditory canals are clear. Oropharynx with no redness, swelling, or masses, exudates, or evidence of obstruction, uvula midline. Mucous membranes moist. Neck: Trachea midline, no thyromegaly or masses palpated, and no cervical lymphadenopathy. Supple, full range of motion without nuchal rigidity, or vertebral point tenderness. Chest/axilla: Normal chest wall appearance and motion. Nontender with no deformity. No lesions are appreciated. Cardiovascular: Regular rate and rhythm with a normal S1 and S2. No gallops, murmurs, or rubs. Normal PMI, no JVD. No pulse deficits. Respiratory: Lungs have equal breath sounds bilaterally, clear to auscultation and percussion. No rales, rhonchi or wheezes noted. No increased work of breathing, no retractions or nasal flaring. Abdomen/GI: Soft, with normal bowel sounds. No distension or tympany. No guarding or rebound. No evidence of tenderness throughout. Back: No spinal tenderness. No costovertebral tenderness. Skin: Warm, dry with normal turgor. Normal color with no rashes, no lesions, and no evidence of cellulitis. MS/ Extremity: Pulses equal, no cyanosis. Neurovascular intact. Full, normal range of motion. Neuro: Awake and alert, GCS 15, oriented to person, place, time, and situation. Cranial nerves II-XII grossly intact. Motor strength 5/5 in all extremities. Sensory grossly intact. Psych: Awake, alert, with orientation to person, place and time. Behavior, mood, and affect are within normal limits Vital Signs: 08/08 03:19 BP 107 / 62; Pulse 71; Resp 16; Temp 97.7; Pulse Ox 100% ; Weight 68.04 kg; Height 5 cp4 ft. 4 in. ; Pain 10/10; 05:45 BP 122 / 70; Pulse 77; Resp 18; Pulse Ox 99% ; cp4 03:19 Body Mass Index 25.75 (68.04 kg, 162.56 cm) cp4 03:19 Pain Scale: Adult cp4 Shen Coma Score: 08/09 01:05 Eye Response: spontaneous(4). Motor Response: obeys commands(6). Verbal Response: sp4 oriented(5). Total: 15. MDM: 08/08 03:24 Medical Screening Exam initiated sp4 05:20 ED course: EXAM: US Abdomen Limited, Gallbladder CLINICAL HISTORY: The patient is 19 sp4 years old and is Female; Abdomen pain, gallbladder stones. TECHNIQUE: Real-time ultrasound of the right upper quadrant with image documentation. COMPARISON: No relevant prior studies available. FINDINGS: Gallbladder: Multiple stones visualized. Negative sonographic Rodriguez sign. No pericholecystic fluid. Gallbladder wall thickness 1.9 mm. Common bile duct: Unremarkable as visualized, 3.1 mm in diameter. No stones. No dilation. Pancreas: Unremarkable as visualized. IMPRESSION: Cholelithiasis. Electronically signed by: Payton Lowery MD 08/08/2024 05:16 AM. 08/09 01:05 Differential diagnosis: cholecystitis, Cholelithiasis, Dysmenorrhea, Endometriosis, sp4 gastritis. Data reviewed: vital signs, nurses notes, lab test result(s), radiologic studies, ultrasound. Consideration of Admission/Observation Escalation of care including admission/observation considered. ED course: Stable for discharge home.. 08/08 03:24 Order name: CBC with Diff; Complete Time: 05:18 sp4 08/08 03:24 Order name: CMP; Complete Time: 05:18 sp4 08/08 03:24 Order name: Lipase; Complete Time: 05:18 sp4 08/08 03:24 Order name: Urinalysis w/ reflexes sp4 08/08 03:24 Order name: Abdomen Limited US sp4 08/08 03:24 Order name: IV Saline Lock; Complete Time: 03:41 sp4 08/08 03:24 Order name: Labs collected and sent; Complete Time: 03:41 sp4 Administered Medications: 08/08 03:41 Drug: Ondansetron IVP 4 mg IVP once; over 2 minutes Route: IVP; Site: right antecubital;cp4 05:39 Follow up: Response: No adverse reaction cp4 03:41 Drug: NS 0.9% IV 1000 ml IV at 1 bolus Per protocol; to be given as a bolus over 60 cp4 minutes Route: IV; Rate: 1 bolus; Site: right antecubital; 05:39 Follow up: IV Status: Completed infusion cp4 05:39 Not Given (Patient Refused): [id number] mg PO once cp4 Disposition Summary: 08/08/24 05:24 Discharge Ordered Notes: Location: Home sp4 Problem: new sp4 Symptoms: have improved sp4 Condition: Stable sp4 Diagnosis - Other cholelithiasis without obstruction sp4 - Cholelithiasis without cholecystitis, at 24 weeks gestation sp4 Followup: sp4 - With: Osorio Salmeron MD - When: 7 - 10 days - Reason: Recheck today's complaints Discharge Instructions: - Discharge Summary Sheet sp4 - Cholelithiasis, [id number] sp4 Forms: - Patient Portal Instructions sp4 Prescriptions: - ondansetron 8 mg Oral Tablet,disintegrating - take 1 tablet ORAL route every 8 hours PRN nausea; 30 tablet; Refills: 0, sp4 Product Selection Permitted Signatures: Dispatcher [employer] Reg Faye MD MD sp4 Ashley Padgett cp4 Corrections: (The following items were deleted from the chart) 03:25 03:25 CBC+H.LAB.BRZ ordered. EDMS EDMS 03:25 03:25 COMPREHENSIVE METABOLIC PANEL+C.LAB.BRZ ordered. EDMS EDMS 03:25 03:25 LIPASE+C.LAB.BRZ ordered. EDMS EDMS 03:25 03:25 Urinalysis+U.LAB.BRZ ordered. EDMS EDMS 03:25 03:25 Abdomen Limited+US.RAD.BRZ ordered. EDMS EDMS
--- NOTE | 2024-08-08 05:25 | ER ---
Nurse's Notes [facility] Name: Vandana Lynn Age: 19 yrs Sex: Female : 2005 Arrival Date: 08/08/2024 Time: 02:52 Bed 3 Private MD: Diagnosis: Other cholelithiasis without obstruction;Cholelithiasis without cholecystitis, at 24 weeks gestation Presentation: 08/08 03:19 Chief complaint: Patient states: gallbladder attack and 6 months . No nausea or cp4 vomting reported. Coronavirus screen: Client denies travel out of the [place] in the last 14 days. At this time, the client does not indicate any symptoms associated with coronavirus-19. Ebola Screen: Patient negative for fever greater than or equal to 101.5 degrees Fahrenheit, and additional compatible Ebola Virus Disease symptoms Patient denies exposure to infectious person. Patient denies travel to an Ebola-affected area in the 21 days before illness onset. No symptoms or risks identified at this time. Initial Sepsis Screen: Does the patient meet any 2 criteria? No. Patient's initial sepsis screen is negative. Does the patient have a suspected source of infection? No. Patient's initial sepsis screen is negative. Risk Assessment: Do you want to hurt yourself or someone else? Patient reports no desire to harm self or others. Onset of symptoms was August 07, 2024. 03:19 Method Of Arrival: Ambulatory cp4 03:19 Acuity: WILLY 3 cp4 Triage Assessment: 03:21 General: Appears in no apparent distress. uncomfortable, Behavior is calm, cooperative, cp4 appropriate for age. Pain: Complains of pain in abdomen Pain does not radiate. Pain currently is 10 out of 10 on a pain scale. 03:23 EENT: No deficits noted. Neuro: Level of Consciousness is awake, alert, obeys commands, cp4 Oriented to person, place, time, situation. Cardiovascular: Patient's skin is warm and dry. Respiratory: Airway is patent Respiratory effort is even, unlabored. GI: Abdomen is round non-distended, Bowel sounds present X 4 quads. Abd is soft and non tender X 4 quads. : No signs and/or symptoms were reported regarding the genitourinary system. Derm: No deficits noted. Musculoskeletal: No signs and/or symptoms reported regarding the musculoskeletal system. 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 - Infectious Disease History:: Denies. - Social history:: Smoking status: Patient denies any tobacco usage or history of. - Family history:: not pertinent. Screenin:24 [facility] ED Fall Risk Assessment (Adult) History of falling in the last 3 months, cp4 including since admission No falls in past 3 months (0 pts) Confusion or Disorientation No (0 pts) Intoxicated or Sedated No (0 pts) Impaired Gait No (0 pts) Mobility Assist Device Used No (0 pt) Altered Elimination No (0 pt) Score/Fall Risk Level 0 - 2 = Low Risk Oriented to surroundings, Maintained a safe environment, Assessed \T\ reinforced patient's understanding of fall precautions, Hourly rounding (assess needs \T\ fall precautionary measures) done. Abuse screen: Denies threats or abuse. Denies injuries from another. Nutritional screening: No deficits noted. Tuberculosis screening: No symptoms or risk factors identified. Assessment: 03:24 Reassessment: No changes from previously documented assessment. cp4 Vital Signs: 03:19 BP 107 / 62; Pulse 71; Resp 16; Temp 97.7; Pulse Ox 100% ; Weight 68.04 kg; Height 5 cp4 ft. 4 in. ; Pain 10/10; 05:45 BP 122 / 70; Pulse 77; Resp 18; Pulse Ox 99% ; cp4 03:19 Body Mass Index 25.75 (68.04 kg, 162.56 cm) cp4 03:19 Pain Scale: Adult cp4 Castile Coma Score: 08/09 01:05 Eye Response: spontaneous(4). Motor Response: obeys commands(6). Verbal Response: sp4 oriented(5). Total: 15. ED Course: 08/08 02:54 Patient arrived in ED. gm2 03:19 Ashley Padgett is Primary Nurse. cp4 03:21 Triage completed. cp4 03:21 Arm band placed on right wrist. Patient placed in waiting room. cp4 03:23 Reg Lisa MD is Attending Physician. sp4 03:24 Placed in gown. Bed in low position. Side rails up X 1. cp4 03:24 No provider procedures requiring assistance completed. cp4 03:52 Abdomen Limited US In Process Unspecified. EDMS 05:22 Osorio Salmeron MD is Referral Physician. sp4 05:46 Provided Education on: cholelithiasis. cp4 05:46 intact, bleeding controlled, No redness/swelling at site. Pressure dressing applied. cp4 Administered Medications: 03:41 Drug: Ondansetron IVP 4 mg IVP once; over 2 minutes Route: IVP; Site: right antecubital;cp4 05:39 Follow up: Response: No adverse reaction cp4 03:41 Drug: NS 0.9% IV 1000 ml IV at 1 bolus Per protocol; to be given as a bolus over 60 cp4 minutes Route: IV; Rate: 1 bolus; Site: right antecubital; 05:39 Follow up: IV Status: Completed infusion cp4 05:39 Not Given (Patient Refused): [id number] mg PO once cp4 Medication: 03:24 VIS not applicable for this client. cp4 Outcome: 05:24 Discharge ordered by . sp4 05:46 Discharged to home ambulatory, cp4 05:46 Condition: stable 05:46 Discharge instructions given to patient, family, Instructed on discharge instructions, follow up and referral plans. medication usage, Demonstrated understanding of instructions, follow-up care, medications, Prescriptions given X 1, 05:49 Patient left the ED. cp4 Signatures: Dispatcher [employer] [facility] Reg Lisa MD MD sp4 Ashley Padgett cp4 Ruthann Comer [facility]
[2024-08-08 05:39] LABS: Specific Gravity 1.009 (1.005-1.030); Sqamous Epithelial None Seen /HPF (None Seen); Urine Bacteria None Seen /HPF (<20); Urine Bilirubin NEGATIVE (Negative); Urine Blood Negative (Negative); Urine Clarity Turbid (Clear); Urine Color Colorless (Yellow); Urine Culture Reflex Order NOT NEEDED; Urine Glucose NEGATIVE (Negative); Urine Ketones NEGATIVE (Negative); Urine Microscopic Reflex YN ORDER UMIC; Urine Nitrite NEGATIVE (Negative); Urine Protein NEGATIVE (Negative); Urine RBC None Seen /HPF (None Seen); Urine Urobilinogen Normal (Normal); Urine WBC None Seen /HPF (<5); Urine pH 7.5 (5.0-7.0)
[2024-08-08 05:55] VITALS: TEMP 97.7
[2024-08-08 05:56] VITALS: BP 122/70; O2SAT 99
== END 2024-08-08 05:49 | disposition home or self-care (01) ==
LOC: ER 02:52
DX: O99.612 Diseases of the digestive system complicating pregnancy, second trimester (principal); K80.20 Calculus of gallbladder without cholecystitis without obstruction; Z3A.24 24 weeks gestation of pregnancy
CPT/HCPCS: 96361; 85025; 81001; 36415; 83690; 80053; 76705; 96374; 99284; J2405; J7030

== ENCOUNTER 2024-08-27 20:34 | Emergency (ER) | payer OTHER ==
--- OUTSIDE RECORDS SUMMARY | 2024-08-27 20:37 | XMS REPORT | Continuity of Care Document ---
Author Name Unknown Address [address] [facility] [address] [place] [address] Organization [facility] Address [address] [facility] [place] [address] Care Team Providers Care Vehicle Care Specialist Name Role Phone Pcp, Patient Does Not Have A Primary Care Physic mason ALAINA CHAPMAN Attending Clinician Unavail able Adela WHAlaina VILLAFUERTE Attending Clinician + HARINDER BAUTISTA Attending Clinician OCTAVIANO Cole Attending Clinician Unavailable OCTAVIANO ESPINOZA Attending Clinician OCTAVIANO Almeida Attending Clinician Unavailable Ultrasound, Ang[facility] Attending Clinician Octaviano Cole MD Attending Clinician Doctor Unassigned, [place] Attending Clinician U SULMA Schumacher Attending Clinician Unavailable GAVIN RIVERA Attending Clinician GAVIN Bradley Attending Clinician Andrea landry Payers Payer Name Policy Type Policy Number Effective Date Expirati on Date Source [facility] [id number] 2022 00:00:00 Problems Condition Name Condition Details Condition Category Status Onset Date Resolution Date Last Treatment Date Treating Clinician Comments Source Supervisio n of high risk in first trimester Supervisio n of high risk in first trimester Disease Active 2023-06 00:00: 00 [facility] Allergies, Adverse Reactions, Alerts Allergy Name Allergy Type Status Severity Reaction(s) Onset Date Inactive Date Treating Clinician Comments Source NO KNOWN ALLERGIE S Drug Class Active [facility] Social History Social Habit Start Date Stop Date Quantity Comments Source ASSERTION 2024-03-03 00:00:00 [facility] Alcoholic beverage intake 2024-08-23 00:00:00 2024-08-23 00:00:00 Ex-drinker (finding) [facility] Tobacco use and exposure 2024-04-30 00:00:00 2024-04-30 00:00:00 Smokeless tobacco non-user [facility] History of Social function 2024-04-30 00:00:00 2024-04-30 00:00:00 [facility] Sex assigned at 2005 00:00:00 2005 00:00:00 [facility] Smoking Status Start Date Stop Date Source Never smoked tobacco [facility] Medications Ordered Medication Name Filled Medication Name Start Date Stop Date Current Medication? Ordering Clinician Indication Dosage Frequency Signature (SIG) Comments Components Source Nitrofurant oin&Nit. Macrocryst (MACROBID) 100 mg capsule 2023-06 00:00: 00 06-07 05:59 :00 No [id number] 100mg Take 1 capsule by mouth in the morning and 1 capsule in the evening. Do all this for 10 days. [facility] PNV 67-iron ps-folate no.1-dha (VITAFOL ULTRA) 29 mg iron- 1 mg-200 mg Cap 2023-06 00:00: 00 Yes [id number] 1{each} Take 1 Each by mouth in the morning. [facility] Vital Signs Vital Name Observation Time Observation Value Comments S essencenadine Systolic blood pressure 2024-07-25 21:54:00 118 mm[Hg] [facility] Diastolic blood pressure 2024-07-25 21:54:00 65 mm[Hg] [facility] Heart rate 2024-07-25 21:54:00 74 /min [facility] Body temperature 2024-07-25 21:54:00 36.39 Rosalind [facility] Body height 2024-07-25 21:54:00 162.6 cm [facility] Body weight 2024-07-25 21:54:00 68.629 kg [facility] BMI 2024-07-25 21:54:00 25.97 kg/m2 [facility] Systolic blood pressure 2024-06-27 21:03:00 134 mm[Hg] [facility] Diastolic blood pressure 2024-06-27 21:03:00 63 mm[Hg] [facility] Heart rate 2024-06-27 21:03:00 62 /min [facility] Body temperature 2024-06-27 21:03:00 36.94 Rosalind [facility] Respiratory rate 2024-06-27 21:03:00 16 /min [facility] Body height 2024-06-27 21:03:00 162.6 cm [facility] Body weight 2024-06-27 21:03:00 65.953 kg [facility] BMI 2024-06-27 21:03:00 24.96 kg/m2 [facility] Systolic blood pressure 2024-05-27 20:11:00 136 mm[Hg] [facility] Diastolic blood pressure 2024-05-27 20:11:00 78 mm[Hg] [facility] Heart rate 2024-05-27 20:11:00 80 /min [facility] Body temperature 2024-05-27 20:11:00 36.5 Rosalind [facility] Respiratory rate 2024-05-27 20:11:00 16 /min [facility] Body weight 2024-05-27 20:11:00 63.186 kg [facility] BMI 2024-05-27 20:11:00 23.91 kg/m2 [facility] Systolic blood pressure 2024-04-30 19:19:00 124 mm[Hg] [facility] Diastolic blood pressure 2024-04-30 19:19:00 58 mm[Hg] [facility] Heart rate 2024-04-30 19:19:00 61 /min [facility] Body temperature 2024-04-30 19:19:00 36.61 Rosalind [facility] Respiratory rate 2024-04-30 19:19:00 16 /min [facility] Body height 2024-04-30 19:19:00 162.6 cm [facility] Body weight 2024-04-30 19:19:00 61.236 kg [facility] BMI 2024-04-30 19:19:00 23.17 kg/m2 [facility] Procedures Procedure Date / Time Performed Performing Clinicia n Source SECOND AND THIRD TRIMESTER ULTRASOUND 2024-08-23 13:44:00 Alaina Chapman [facility] SECOND AND THIRD TRIMESTER ULTRASOUND 2024-07-19 20:36:00 Alaina Chapman [facility] POCT URINALYSIS 2024-06-27 21:05:00 Alaina Chapman [facility] SECOND AND THIRD TRIMESTER ULTRASOUND 2024-06-12 21:11:00 Alaina Chapman [facility] NIPT - NON-INVASIVE TEST RESULTS 2024-06-06 21:57:49 Doctor Unassigned, [place] [facility] NIPT - NON-INVASIVE TEST RESULTS 2024-06-04 22:33:14 Doctor Unassigned, [place] [facility] NIPT - NON-INVASIVE TEST RESULTS 2024-06-03 18:38:00 Doctor Unassigned, [place] [facility] POCT URINALYSIS 2024-05-27 00:00:00 Alaina Chapman [facility] POCT TEST 2024-04-30 19:12:00 Brent Chapman [facility] POCT URINALYSIS W/O SPECIFIC GRAVITY 2024-04-30 19:12:00 Alaina Chapman [facility] Encounters Start Date/Time End Date/Time Encounter Type Admission Type Attending [facility] Care Facility Care Department Encounter ID Source 2024-08-26 00:00:00 2024-08-26 07:27:29 Abstract Alaina Chapman [facility] PSYCHOLOGIST ASSISTANT [facility] MATERNAL & CHILD HEALTH [facility] 1.840.114 350.1.13.10 4.2.7.2.686 [id number] [facility] 2024-08-23 08:00:00 2024-08-23 08:56:37 Outpatient R ALEXIS OCTAVIANO ALEXIS OCTAVIANOODALIS CORRALIN [facility] [id number] [facility] 2024-08-23 08:00:00 2024-08-23 08:56:37 Photo Tech Visit Ultrasound, Octaviano Lugo [facility] PSYCHOLOGIST ASSISTANT [facility] MATERNAL & CHILD [facility] 1.840.114 350.1.13.10 4.2.7.2.686 [id number] [facility] 2024-08-15 13:15:00 2024-08-15 13:57:06 Outpatient R HARINDER BAUTISTA [facility] [id number] [facility] 2024-08-13 15:30:00 2024-08-13 16:15:09 Outpatient R ALAINA CHAPMAN [facility] [id number] [facility] 2024-07-25 15:30:00 2024-07-25 16:15:08 Outpatient R ALAINA CHAPMAN [facility] [id number] [facility] 2024-07-25 15:30:00 2024-07-25 16:15:08 Routine Visit Alaina Chapman [facility] PSYCHOLOGIST ASSISTANT [facility] & CHILD [facility] 1.840.114 350.1.13.10 4.2.7.2.686 [id number] [facility] 2024-07-25 00:00:00 2024-07-25 13:04:27 Abstract Alaina Chapman [facility] PSYCHOLOGIST ASSISTANT [facility] & CHILD [facility] 1..840.114 350.1.13.10 4.2.7.2.686 [id number] [facility] 2024-07-19 00:00:00 2024-07-23 14:40:15 Telephone Alaina Chapman [facility] PSYCHOLOGIST ASSISTANT [facility] MATERNAL & CHILD [facility] 1.2.840.114 350.1.13.10 4.2.7.2.686 [id number] [facility] 2024-06-03 00:00:00 2024-07-20 06:24:50 Orders Only Doctor Unassigned, [place] Doctor Unassigned, [place] [facility] 1.2.840.114 350.1.13.10 4.2.7.2.686 [id number] [facility] 2024-06-04 00:00:00 2024-07-20 06:24:28 Orders Only Doctor Unassigned, [place] Doctor Unassigned, [place] [facility] ([place] 1.2.840.114 350.1.13.10 4.2.7.2.686 [id number] [facility] 2024-06-06 00:00:00 2024-07-20 06:24:06 Orders Only Doctor Unassigned, [place] Doctor Unassigned, [place] [facility] ([place] 1.2.840.114 350.1.13.10 4.2.7.2.686 [id number] [facility] 2024-07-19 13:00:00 2024-07-19 14:38:09 Outpatient P ALAINA CHAPMAN [facility] [id number] [facility] 2024-07-19 13:00:00 2024-07-19 14:38:09 Photo Tech Visit Ultrasound, Alaina Mac [facility] PSYCHOLOGIST ASSISTANT [facility] MATERNAL & CHILD [facility] 1.2.840.114 350.1.13.10 4.2.7.2.686 [id number] [facility] 2024-07-15 00:00:00 2024-07-15 13:41:55 Telephone AdelaJakeAlaina C [facility] PSYCHOLOGIST ASSISTANT [facility] & CHILD [facility] 1.2.840.114 350.1.13.10 4.2.7.2.686 [id number] [facility] 2024-06-27 15:00:00 2024-06-27 15:15:00 Routine Visit Alaina Chapman [facility] PSYCHOLOGIST ASSISTANT [facility] & CHILD [facility] 1.2.840.114 350.1.13.10 4.2.7.2.686 [id number] [facility] 2024-06-27 15:00:00 2024-06-27 15:00:00 Outpatient R ALAINA CHAPMAN [facility] [id number] [facility] 2024-06-25 14:45:00 2024-06-25 14:45:00 Outpatient R ALAINA CHAPMAN [facility] [id number] [facility] 2024-06-13 00:00:00 2024-06-13 11:56:15 Abstract Alaina Chapman [facility] PSYCHOLOGIST ASSISTANT [facility] CHILD [facility] 1.2.840.114 350.1.13.10 4.2.7.2.686 [id number] [facility] 2024-06-12 15:00:00 2024-06-12 15:36:53 Photo Tech Visit Ultrasound, Lauro-m Alaina Chapman [facility] PSYCHOLOGIST ASSISTANT [facility] & CHILD [facility] 1.2.840.114 350.1.13.10 4.2.7.2.686 [id number] [facility] 2024-06-12 15:00:00 2024-06-12 15:36:53 Outpatient P ALAINA CHAPMAN [facility] [id number] [facility] 2024-05-27 14:15:00 2024-05-27 14:48:42 Outpatient R ALAINA CHAPMAN [facility] [id number] [facility] 2024-05-27 14:15:00 2024-05-27 14:48:42 Routine Visit Alaina Chapman [facility] PSYCHOLOGIST ASSISTANT [facility] & CHILD [facility] 1.2.840.114 350.1.13.10 4.2.7.2.686 [id number] [facility] 2024-05-15 00:00:00 2024-05-15 14:30:06 Telephone Alaina Chapman [facility] PSYCHOLOGIST ASSISTANT [facility] & CHILD [facility] 1.2.840.114 350.1.13.10 4.2.7.2.686 [id number] [facility] 2024-05-07 00:00:00 2024-05-07 14:57:00 Telephone Alaina Chapman [facility] PSYCHOLOGIST ASSISTANT [facility] & CHILD [facility] 1.2.840.114 350.1.13.10 4.2.7.2.686 [id number] [facility] 2024-04-30 13:45:00 2024-04-30 14:14:52 Outpatient R JANICE CHAPMANOLA [facility] [id number] [facility] 2024-04-30 13:45:00 2024-04-30 14:14:52 Initial Visit Alaina Chapman [facility] PSYCHOLOGIST ASSISTANT [facility] & CHILD [facility] 1.2.840.114 350.1.13.10 4.2.7.2.686 [id number] [facility] 2024-04-22 13:45:00 2024-04-22 13:45:00 Outpatient R HARINDER BAUTISTA [facility] [id number] [facility] 2023-12-26 14:30:00 2023-12-26 14:30:00 Outpatient R SULMA ARANGO [facility] [id number] [facility] 2022-11-29 15:30:00 2022-11-29 15:30:00 Outpatient R ALBERGAVIN FRANCO VIOLETMARIA T ALISONKATHRYN [facility] [id number] [facility] Results Test Description Test Time Test Comments Results Result Co mments Source [facility] - NON-INVASIVE TEST RESULTS 2024-06-06 21:57:49Ordered by an unspecified provider.[facility] - NON-INVASIVE TEST [id number] 22:33:14 Ordered by an unspecified provider.[facility] - NON- INVASIVE TEST [id number] 18:38:00Ordered by an unspecified provider.[facility] SPECIFIC GRAVITY 2024-05-27 20:12:00* Test [...] U APPEAR (test code = 3267) . [facility] w/o Specific [id number] 19:12:00* Test Item Value Reference Range Interpretation [...] = 3257) 250 Negative - Negati ve [facility] [id number] 19:12:00* Test Item Value Reference Range Interpretation Comme nts POCT PREG (test code = 1605) Positive On board controls acceptable with C Line (test code = 3574) Yes POCT PREG LOT # (test code = 3575) POCT PREG TEST DATE ( test code = 3576) [facility] Notes Date/Time Note Provider Source 2024-07-19 14:39:16 Patient states that she went to the ER and was told she has gallstones just wanted to let us know. LUTION REP Alin Covington [facility] 2024-07-15 13:35:53 Called pt, pt reports had [...] understanding. Jaquelin Willson RN 07/15/24 1:41 PM LUTION REP Jaquelin Willson RN [facility] 2024-07-15 12:46:29 Blanche Gentile is a 19 year old female Pt states she had pressure under her sternum x last night, she was sweating, shivering and almost blacking out, better today but body sore. Would like to speak to nurse [phone] (home) LUTION REP Giulia Romero [facility] 2024-05-15 14:26:41 Pt reports cramping to lower [...] understanding. Zuleika Mosquera LVN 05/15/2024 2:29 PM LUTION REP Zuleika Mosquera [facility] 2024-05-15 14:18:55 Blanche Gentile is a 19 year old female is requesting to speak with a nurse. She says that she is having some cramping but no other symptoms. Not currently cramping at this time. Please call. LUTION REP Nan Keller [facility] 2024-05-07 14:56:48 Called patient, notified patient positive for UTI. Educated patient on antibiotics, good perineal hygiene, and increasing fluids. Pt verbalized understanding. Zuleika Mosquera LVN 05/07/2024 2:56 PM LUTION REP Zuleika Mosquera [facility] 2024-05-07 14:46:25 Please notify the patient of UTI, meds have been sent to the pharmacy. Please advise the patient on good perineal hygiene, drinking plenty of water, and completing the entire course of treatment. GÓMEZ Dominguez 05/07/2024 2:46 PM [facility]
--- NOTE | 2024-08-27 21:02 | ER ---
Nurse's Notes [facility] Name: Vandana Lynn Age: 19 yrs Sex: Female : 2005 Arrival Date: 08/27/2024 Time: 20:34 Bed IW3 Private MD: Diagnosis: Presentation: 08/27 21:01 Chief complaint: left without being seen. me1 ED Course: 20:42 Patient arrived in ED. gm2 20:53 Abib Beltrán FNP-C is [facility] kb 20:53 Reg Lisa MD is Attending Physician. kb Administered Medications: No medications were administered Outcome: 21:02 Patient left the ED. me1 Signatures: Abbi Beltrán FNP-C FNP-Ckb Eddleman, Michelle, RN RN md1 Ruthann Comer gm2
== END 2024-08-27 21:02 | disposition left against medical advice (07) ==
LOC: ER 20:34
DX: Z02.9 Encounter for administrative examinations, unspecified (principal)

== ENCOUNTER 2024-08-28 00:50 | Emergency (ER) | payer OTHER ==
--- OUTSIDE RECORDS SUMMARY | 2024-08-28 00:55 | XMS REPORT | Continuity of Care Document ---
Author Name Unknown Address [address] [facility] [address] [place] [address] Organization [facility] Address [address] [facility] [address] [facility] [address] [place] [address] Care Team Providers Care Furnace Installer Name Role Phone Pcp, Patient Does Not Have A Primary Care Physic mason ALAINA CHAPMAN Attending Clinician Unavail able Adela WHAlaina VILLAFUERTE Attending Clinician + HARINDER BAUTISTA Attending Clinician OCTAVIANO Cole Attending Clinician Unavailable OCTAVIANO GAO Attending Clinician OCTAVIANO Almeida Attending Clinician Unavailable Ultrasound, Ang-Mfm Attending Clinician Octaviano Cole MD Attending Clinician Doctor Unassigned, [place] Attending Clinician U SULMA Schumacher Attending Clinician Unavailable GAVIN RIVERA Attending Clinician GAVIN Bradley Attending Clinician Andrea landry Payers Payer Name Policy Type Policy Number Effective Date Expirati on Date Source [facility] [id number] 2022 00:00:00 Problems Condition Name Condition Details Condition Category Status Onset Date Resolution Date Last Treatment Date Treating Clinician Comments Source Supervisio n of high risk in first trimester Supervisio n of high risk in first trimester Disease Active 2023-06 00:00: 00 [facility] Allergies, Adverse Reactions, Alerts Allergy Name Allergy Type Status Severity Reaction(s) Onset Date Inactive Date Treating Clinician Comments Source NO KNOWN ALLERGIE S Drug Class Active [facility] Social History Social Habit Start Date Stop Date Quantity Comments Source ASSERTION 2024-03-03 00:00:00 [facility] Al[facility]olic beverage intake 2024-08-23 00:00:00 2024-08-23 00:00:00 Ex-drinker (finding) [facility] Tobacco use and exposure 2024-04-30 00:00:00 2024-04-30 00:00:00 Smokeless tobacco non-user [facility] History of Social function 2024-04-30 00:00:00 2024-04-30 00:00:00 [facility] Sex assigned at 2005 00:00:00 2005 00:00:00 [facility] Smoking Status Start Date Stop Date Source Never smoked tobacco [facility] Medications Ordered Medication Name Filled Medication Name Start Date Stop Date Current Medication? Ordering Clinician Indication Dosage Frequency Signature (SIG) Comments Components Source Nitrofurant oin&Nit. Macrocryst (MACROBID) 100 mg capsule 2023-06 00:00: 00 06-07 05:59 :00 No [id number] 100mg Take 1 capsule by mouth in the morning and 1 capsule in the evening. Do all this for 10 days. [facility] PNV 67-iron ps-folate no.1-dha (VITAFOL ULTRA) 29 mg iron- 1 mg-200 mg Cap 2023-06 00:00: 00 Yes [id number] 1{each} Take 1 Each by mouth in the morning. [facility] Vital Signs Vital Name Observation Time Observation Value Comments S essencenadine Systolic blood pressure 2024-07-25 21:54:00 118 mm[Hg] [facility] Diastolic blood pressure 2024-07-25 21:54:00 65 mm[Hg] [facility] Heart rate 2024-07-25 21:54:00 74 /min [facility] Body temperature 2024-07-25 21:54:00 36.39 Rosalind [facility] Body height 2024-07-25 21:54:[address] [facility] Body weight 2024-07-25 21:54:[address] [facility] BMI 2024-07-25 21:54:00 25.97 kg/m2 [facility] Systolic blood pressure 2024-06-27 21:03:00 134 mm[Hg] [facility] Diastolic blood pressure 2024-06-27 21:03:00 63 mm[Hg] [facility] Heart rate 2024-06-27 21:03:00 62 /min [facility] Body temperature 2024-06-27 21:03:00 36.94 Rosalind [facility] Respiratory rate 2024-06-27 21:03:00 16 /min [facility] Body height 2024-06-27 21:03:[address] [facility] Body weight 2024-06-27 21:03:00 65.953 kg [facility] BMI 2024-06-27 21:03:00 24.96 kg/m2 [facility] Systolic blood pressure 2024-05-27 20:11:00 136 mm[Hg] [facility] Diastolic blood pressure 2024-05-27 20:11:00 78 mm[Hg] [facility] Heart rate 2024-05-27 20:11:00 80 /min [facility] Body temperature 2024-05-27 20:11:00 36.5 Rosalind [facility] Respiratory rate 2024-05-27 20:11:00 16 /min [facility] Body weight 2024-05-27 20:11:[address] [facility] BMI 2024-05-27 20:11:00 23.91 kg/m2 [facility] Systolic blood pressure 2024-04-30 19:19:00 124 mm[Hg] [facility] Diastolic blood pressure 2024-04-30 19:19:00 58 mm[Hg] [facility] Heart rate 2024-04-30 19:19:00 61 /min [facility] Body temperature 2024-04-30 19:19:00 36.61 Rosalind [facility] Respiratory rate 2024-04-30 19:19:00 16 /min [facility] Body height 2024-04-30 19:19:00 162.6 cm [facility] Body weight 2024-04-30 19:19:00 61.236 kg [facility] BMI 2024-04-30 19:19:00 23.17 kg/m2 [facility] Procedures Procedure Date / Time Performed Performing Clinicia n Source SECOND AND THIRD TRIMESTER ULTRASOUND 2024-08-23 13:44:00 Alaina Chapman [facility] SECOND AND THIRD TRIMESTER ULTRASOUND 2024-07-19 20:36:00 Alaina Chapman [facility] POCT URINALYSIS 2024-06-27 21:05:00 Alaina Chapman [facility] SECOND AND THIRD TRIMESTER ULTRASOUND 2024-06-12 21:11:00 Alaina Chapman [facility] NIPT - NON-INVASIVE TEST RESULTS 2024-06-06 21:57:49 Doctor Unassigned, [place] NIPT - NON-INVASIVE TEST RESULTS 2024-06-04 22:33:14 Doctor Unassigned, [place] [facility] NIPT - NON-INVASIVE TEST RESULTS 2024-06-03 18:38:00 Doctor Unassigned, [place] POCT URINALYSIS 2024-05-27 00:00:00 Alaina Chapman [facility] POCT TEST 2024-04-30 19:12:00 Brent Chapman [facility] POCT URINALYSIS W/O SPECIFIC GRAVITY 2024-04-30 19:12:00 Alaina Chapman [facility] Encounters Start Date/Time End Date/Time Encounter Type Admission Type Attending [facility] Care Facility Care Department Encounter ID Source 2024-08-26 00:00:00 2024-08-26 07:27:29 Abstract Alaina Chapman [facility] SALES SERVICE ASSISTANT [facility] 1.840.114 350.1.13.10 4.2.7.2.686 [id number] [facility] 2024-08-23 08:00:00 2024-08-23 08:56:37 Outpatient R ALEXIS OCTAVIANO GAO OCTAVIANO GAO OCTAVIANO [facility] [id number] [facility] 2024-08-23 08:00:00 2024-08-23 08:56:37 Direct Care Worker Visit Ultrasound, Oscar Gao Octaviano [facility] SALES SERVICE ASSISTANT [facility] 1.840.114 350.1.13.10 4.2.7.2.686 [id number] [facility] 2024-08-15 13:15:00 2024-08-15 13:57:06 Outpatient R HARINDER BAUTISTA [facility] [id number] [facility] 2024-08-13 15:30:00 2024-08-13 16:15:09 Outpatient R ALAINA CHAPMAN [facility] [id number] [facility] 2024-07-25 15:30:00 2024-07-25 16:15:08 Outpatient R ALANIA CHAPMAN [facility] [id number] [facility] 2024-07-25 15:30:00 2024-07-25 16:15:08 Routine Visit Alaina Chapman [facility] SALES SERVICE ASSISTANT [facility] 1.84.114 350.1.13.10 4.2.7.2.686 [id number] [facility] 2024-07-25 00:00:00 2024-07-25 13:04:27 Abstract Alaina Chapman [facility] SALES SERVICE ASSISTANT [facility] 1.840.114 350.1.13.10 4.2.7.2.686 [id number] [facility] 2024-07-19 00:00:00 2024-07-23 14:40:15 Telephone Alaina Chapman [facility] SALES SERVICE ASSISTANT [facility] 1.2.840.114 350.1.13.10 4.2.7.2.686 [id number] [facility] 2024-06-03 00:00:00 2024-07-20 06:24:50 Orders Only Doctor Unassigned, [place] Doctor Unassigned, [place] [facility] ([place]) 1.2.840.114 350.1.13.10 4.2.7.2.686 [id number] [facility] 2024-06-04 00:00:00 2024-07-20 06:24:28 Orders Only Doctor Unassigned, [place] Doctor Unassigned, [place] [facility] ([place]) 1.2.840.114 350.1.13.10 4.2.7.2.686 [id number] [facility] 2024-06-06 00:00:00 2024-07-20 06:24:06 Orders Only Doctor Unassigned, [place] Doctor Unassigned, [place] [facility] ([place]) 1.2.840.114 350.1.13.10 4.2.7.2.686 [id number] [facility] 2024-07-19 13:00:00 2024-07-19 14:38:09 Outpatient P ALIANA CHAPMAN [facility] [id number] [facility] 2024-07-19 13:00:00 2024-07-19 14:38:09 Direct Care Worker Visit Ultrasound, Alaina Mac [facility] SALES SERVICE ASSISTANT [facility] 1.2.840.114 350.1.13.10 4.2.7.2.686 [id number] [facility] 2024-07-15 00:00:00 2024-07-15 13:41:55 Telephone AdelaEnaAlaina C [facility] SALES SERVICE ASSISTANT [facility] 1.2.840.114 350.1.13.10 4.2.7.2.686 [id number] [facility] 2024-06-27 15:00:00 2024-06-27 15:15:00 Routine Visit Alaina Chapman [facility] SALES SERVICE ASSISTANT [facility] 1.2.840.114 350.1.13.10 4.2.7.2.686 [id number] [facility] 2024-06-27 15:00:00 2024-06-27 15:00:00 Outpatient R ALAINA CHAPMAN [facility] [id number] [facility] 2024-06-25 14:45:00 2024-06-25 14:45:00 Outpatient R ALAINA CHAPMAN [facility] [id number] [facility] 2024-06-13 00:00:00 2024-06-13 11:56:15 Abstract Alaina Chapman [facility] SALES SERVICE ASSISTANT [facility] 1.2.840.114 350.1.13.10 4.2.7.2.686 [id number] [facility] 2024-06-12 15:00:00 2024-06-12 15:36:53 Direct Care Worker Visit Ultrasound, Lauro-m Alaina Chapman [facility] SALES SERVICE ASSISTANT [facility] 1.2.840.114 350.1.13.10 4.2.7.2.686 [id number] [facility] 2024-06-12 15:00:00 2024-06-12 15:36:53 Outpatient P ALAINA CHAPMAN [facility] [id number] [facility] 2024-05-27 14:15:00 2024-05-27 14:48:42 Outpatient R ALAINA CHAPMAN [facility] [id number] [facility] 2024-05-27 14:15:00 2024-05-27 14:48:42 Routine Visit Alaina Chapman [facility] SALES SERVICE ASSISTANT [facility] 1.2.840.114 350.1.13.10 4.2.7.2.686 [id number] [facility] 2024-05-15 00:00:00 2024-05-15 14:30:06 Telephone Alaina Chapman [facility] SALES SERVICE ASSISTANT [facility] 1.2.840.114 350.1.13.10 4.2.7.2.686 [id number] [facility] 2024-05-07 00:00:00 2024-05-07 14:57:00 Telephone Alaina Chapman [facility] SALES SERVICE ASSISTANT [facility] 1.2.840.114 350.1.13.10 4.2.7.2.686 [id number] [facility] 2024-04-30 13:45:00 2024-04-30 14:14:52 Outpatient R ENA CHAPMANOLA [facility] [id number] [facility] 2024-04-30 13:45:00 2024-04-30 14:14:52 Initial Visit Alaina Chapman Dao [facility] SALES SERVICE ASSISTANT [facility] 1.2.840.114 350.1.13.10 4.2.7.2.686 [id number] [facility] 2024-04-22 13:45:00 2024-04-22 13:45:00 Outpatient R HARINDER BAUTISTA [facility] [id number] [facility] 2023-12-26 14:30:00 2023-12-26 14:30:00 Outpatient R SULMA ARANGO [facility] [id number] [facility] 2022-11-29 15:30:00 2022-11-29 15:30:00 Outpatient R GAVIN RIVERA ALBERMEKHIMATTHEWGAVIN LIVE [facility] [id number] [facility] Results Test Description Test Time Test Comments Results Result Co mments Source [facility] - NON-INVASIVE TEST RESULTS 2024-06-06 21:57:49Ordered by an unspecified provider.[facility] - NON-INVASIVE TEST [id number] 22:33:14 Ordered by an unspecified provider.[facility] - NON- INVASIVE TEST [id number] 18:38:00[facility] an [facility] 2024-05-27 20:12:00* Test [...] U APPEAR (test code = 3267) . [facility] Specific [id number] 19:12:00* Test Item Value Reference Range Interpretation [...] = 3257) 250 Negative - Negati ve [facility] [id number] 19:12:00* Test Item Value Reference Range Interpretation Comme nts POCT PREG (test code = 1605) Positive On board controls acceptable with C Line (test code = 3574) Yes POCT PREG LOT # (test code = 3575) POCT PREG TEST DATE ( test code = 3576) [facility] Notes Date/Time Note Provider Source 2024-07-19 14:39:16 Patient states that she went to the ER and was told she has gallstones just wanted to let us know. ICAL CARE PHYSICIAN Alin Covington [facility] 2024-07-15 13:35:53 Called pt, pt reports had [...] understanding. Jaquelin Willson RN 07/15/24 1:41 PM ICAL CARE PHYSICIAN Jaquelin Willson RN [facility] 2024-07-15 12:46:29 Blanche Gentile is a 19 year old female Pt states she had pressure under her sternum x last night, she was sweating, shivering and almost blacking out, better today but body sore. Would like to speak to nurse [phone] (home) ICAL CARE PHYSICIAN Giulia Romero [facility] 2024-05-15 14:26:41 Pt reports cramping to lower [...] understanding. Zuleika Mosquera LVN 05/15/2024 2:29 PM ICAL CARE PHYSICIAN Zuleika Mosquera [facility] 2024-05-15 14:18:55 Blanche Gentile is a 19 year old female is requesting to speak with a nurse. She says that she is having some cramping but no other symptoms. Not currently cramping at this time. Please call. ICAL CARE PHYSICIAN Nan Keller [facility] 2024-05-07 14:56:48 Called patient, notified patient positive for UTI. Educated patient on antibiotics, good perineal hygiene, and increasing fluids. Pt verbalized understanding. Zuleika Mosquera LVN 05/07/2024 2:56 PM ICAL CARE PHYSICIAN Zuleika Mosquera [facility] 2024-05-07 14:46:25 Please notify the patient of UTI, meds have been sent to the pharmacy. Please advise the patient on good perineal hygiene, drinking plenty of water, and completing the entire course of treatment. GÓMEZ Dominguez 05/07/2024 2:46 PM [facility]
[2024-08-28] MEDS ORDERED: ACETAMINOPHEN 500 MG TAB ONE (03:15)
--- NOTE | 2024-08-28 04:16 | EDPHYS ---
Physician Documentation [facility] Name: Vandana Lynn Age: 19 yrs Sex: Female : 2005 Arrival Date: 08/28/2024 Time: 00:50 Bed DX5 Private MD: ED Physician Reg Lisa HPI: 08/28 01:22 This 19 yrs old Female presents to ER via Ambulatory with complaints of sp4 Abdominal Pain, Back Pain. 21:29 19-year-old female 26 weeks estimated gestational age presents with upper abdominal sp4 pain that has resolved prior to arrival. Also some back pain as well. Of cholelithiasis.. Historical: - Allergies: 00:58 No Known Allergies; br2 - PSHx: 00:58 ear tubes; br2 - Immunization history:: Adult Immunizations not up to date. - Infectious Disease History:: Denies. - Social history:: Smoking status: Reported history of juuling and/or vaping. Patient/guardian denies using alcohol, street drugs. - Family history:: not pertinent. ROS: 21:29 Constitutional: Negative for fever, chills, and weight loss, Eyes: Negative for injury, sp4 pain, redness, and discharge, ENT: Negative for injury, pain, and discharge, Neck: Negative for injury, pain, and swelling, Cardiovascular: Negative for chest pain, palpitations, and edema, Respiratory: Negative for shortness of breath, cough, wheezing, and pleuritic chest pain, Abdomen/GI: Negative for abdominal pain, nausea, vomiting, diarrhea, and constipation, Back: For recurrent back pain : Negative for injury, bleeding, discharge, and swelling, MS/Extremity: Negative for injury and deformity, Skin: Negative for injury, rash, and discoloration, Neuro: Negative for headache, weakness, numbness, tingling, and seizure, 21:29 All other systems are negative, Exam: 21:29 Constitutional: This is a well developed, well nourished patient who is awake, alert, sp4 and in no acute distress. Head/Face: Normocephalic, atraumatic. Eyes: Pupils equal round and reactive to light, extra-ocular motions intact. Lids and lashes normal. Conjunctiva and sclera are not injected. Cornea within normal limits. Periorbital areas with no swelling, redness, or edema. ENT: Nares patent. No nasal discharge, no septal abnormalities noted. Tympanic membranes are normal and external auditory canals are clear. Oropharynx with no redness, swelling, or masses, exudates, or evidence of obstruction, uvula midline. Mucous membranes moist. Neck: Trachea midline, no thyromegaly or masses palpated, and no cervical lymphadenopathy. Supple, full range of motion without nuchal rigidity, or vertebral point tenderness. Chest/axilla: Normal chest wall appearance and motion. Nontender with no deformity. No lesions are appreciated. Cardiovascular: Regular rate and rhythm with a normal S1 and S2. No gallops, murmurs, or rubs. Normal PMI, no JVD. No pulse deficits. Respiratory: Lungs have equal breath sounds bilaterally, clear to auscultation and percussion. No rales, rhonchi or wheezes noted. No increased work of breathing, no retractions or nasal flaring. Abdomen/GI: Soft, with normal bowel sounds. No distension or tympany. No guarding or rebound. No evidence of tenderness throughout. Back: No spinal tenderness. No costovertebral tenderness. Skin: Warm, dry with normal turgor. Normal color with no rashes, no lesions, and no evidence of cellulitis. MS/ Extremity: Pulses equal, no cyanosis. Neurovascular intact. Full, normal range of motion. Neuro: Awake and alert, GCS 15, oriented to person, place, time, and situation. Cranial nerves II-XII grossly intact. Motor strength 5/5 in all extremities. Sensory grossly intact. Psych: Awake, alert, with orientation to person, place and time. Behavior, mood, and affect are within normal limits Vital Signs: 00:55 BP 148 / 87; Pulse 82; Resp 18; Temp 97.2; Pulse Ox 100% ; Weight 68.04 kg; Height 5 br2 ft. 3 in. ; Pain 6/10; 03:00 BP 140 / 80; Pulse 80; Resp 20; Pulse Ox 100% ; br2 00:55 Body Mass Index 26.57 (68.04 kg, 160.02 cm) br2 00:55 Pain Scale: Adult br2 Sibley Coma Score: 21:29 Eye Response: spontaneous(4). Motor Response: obeys commands(6). Verbal Response: sp4 oriented(5). Total: 15. MDM: 01:24 Medical Screening Exam initiated sp4 05:55 ED course: EXAM: US PREGNANCYLIMITED HISTORY: 19 years Female 27 weeks EGA COMPARISON: sp4 None TECHNIQUE: Multiple grayscale and color Doppler images were obtained in a transabdominal pelvic ultrasound. Spectral analysis of the Doppler waveforms of the ovaries were performed. FINDINGS: Single viable IUP measuring 27 week 3 day with KAILASH of 11/24/2024. Cephalic positioning heart rate: 145 BPM Femur length: 5.1 cm MICHELL: 14.1 cm, maximum vertical pocket: 4.6 cm Cervix: 3.7 cm. Closed No free fluid is seen in the pelvis. RIGHT OVARY: Non visualized, possibly obscured by bowel gas. LEFT OVARY: Non visualized, possibly obscured by bowel gas. IMPRESSION: Single live intrauterine with estimated age of 27 w 3 d. MICHELL within normal limits. Closed cervix.. ED course: PROCEDURES: US ABDOMEN LIMITED CLINICAL HISTORY: ABD PAIN TECHNIQUE: Limited ultrasound of the gallbladder. COMPARISON: None. FINDINGS: LIVER: Normal size and echogenicity. No masses seen. GALLBLADDER: Stones or sludge present within the gallbladder. No gallbladder wall thickening. No sonographic Rodriguez's sign. No pericholecystic fluid. BILE DUCTS: Intrahepatic and extrahepatic bile ducts appear normal. Measured near the hepatis, the common bile duct is 4 mm. ASCITES: No ascites. ADDITIONAL FINDINGS: None. IMPRESSION: Cholelithiasis and sludge but no ancillary findings to suggest acute cholecystitis.. 21:29 Differential diagnosis: arthritis, Fracture . Data reviewed: vital signs, sp4 nurses notes, radiologic studies, ultrasound. Consideration of Admission/Observation Escalation of care including admission/observation considered. ED course: Declined blood work. Sound negative for acute medical emergent condition patient has single intrauterine at 27 weeks 3 days EGA, otherwise normal ultrasound. Gallbladder ultrasound reveals cholelithiasis without cholecystitis. Stable for discharge home.. 08/28 01:24 Order name: US Abdomen Limited sp4 08/28 01:24 Order name: US OB Limited sp4 08/28 01:24 Order name: Labs collected and sent sp4 Administered Medications: 03:20 Drug: Acetaminophen PO 1000 mg PO once Route: PO; br2 04:00 Follow up: Response: No adverse reaction br2 03:38 Not Given (Patient Refused): ondansetron 4 mg IVP once; over 2 minutes br2 03:38 Not Given (Patient Refused): ns 0.9% 1000 ml IV at 1 bolus Per protocol; to be given as br2 a bolus over 60 minutes Disposition: 21:34 Chart complete. sp4 Disposition Summary: 08/28/24 04:16 Discharge Ordered Notes: Location: Home sp4 Problem: new sp4 Symptoms: have improved sp4 Condition: Stable sp4 Diagnosis - Other cholelithiasis without obstruction sp4 - Cholelithiasis without cholecystitis, at 27-week gestation sp4 Followup: sp4 - With: Private Physician - When: 7 - 10 days - Reason: Recheck today's complaints Followup: sp4 - With: Osorio Salmeron MD - When: 7 - 10 days - Reason: Recheck today's complaints Discharge Instructions: - Discharge Summary Sheet sp4 - Cholelithiasis sp4 Forms: - Patient Portal Instructions sp4 Prescriptions: - ondansetron 8 mg Oral Tablet,disintegrating - take 1 tablet ORAL route every 8 hours PRN nausea; 30 tablet; Refills: 0, sp4 Product Selection Permitted Signatures: Dispatcher [employer] Reg Faye MD MD sp4 Olinda Arango RN RN br2 Corrections: (The following items were deleted from the chart) 03:38 01:24 IV Saline Lock ordered. sp4 br2
--- NOTE | 2024-08-28 04:16 | ER ---
Nurse's Notes [facility] Name: Vandana Lynn Age: 19 yrs Sex: Female : 2005 Arrival Date: 08/28/2024 Time: 00:50 Bed DX5 Private MD: Diagnosis: Other cholelithiasis without obstruction;Cholelithiasis without cholecystitis, at 27-week gestation Presentation: 08/28 00:55 Chief complaint: Patient states: EPIGASTRIC PAIN AND RADIATES TO BACK, SOB...PT IS 27 br2 WEEKS PREG. Coronavirus screen: Client denies travel out of the [place] in the last 14 days. Ebola Screen: Patient denies exposure to infectious person. Initial Sepsis Screen: Does the patient meet any 2 criteria? No. Patient's initial sepsis screen is negative. Does the patient have a suspected source of infection? No. Patient's initial sepsis screen is negative. Risk Assessment: Do you want to hurt yourself or someone else? Patient reports no desire to harm self or others. Onset of symptoms was August 27, 2024 at 19:30. 00:55 Method Of Arrival: Ambulatory br2 00:55 Acuity: WILLY 3 br2 01:00 Chief complaint:. br2 Triage Assessment: 00:58 General: Appears uncomfortable, Behavior is calm. Pain: Complains of pain in xiphoid br2 area Pain radiates to thoracic area, lumbar area, left mid back and right mid back. GI: Reports epigastric pain. Historical: - Allergies: 00:58 No Known Allergies; br2 - PSHx: 00:58 ear tubes; br2 - Immunization history:: Adult Immunizations not up to date. - Infectious Disease History:: Denies. - Social history:: Smoking status: Reported history of juuling and/or vaping. Patient/guardian denies using alcohol, street drugs. - Family history:: not pertinent. Screenin:00 [facility] ED Fall Risk Assessment (Adult) History of falling in the last 3 months, br2 including since admission No falls in past 3 months (0 pts) Confusion or Disorientation No (0 pts) Intoxicated or Sedated No (0 pts) Impaired Gait No (0 pts) Mobility Assist Device Used No (0 pt) Altered Elimination No (0 pt) Score/Fall Risk Level 0 - 2 = Low Risk Oriented to surroundings. Abuse screen: Denies threats or abuse. Denies injuries from another. Nutritional screening: No deficits noted. Tuberculosis screening: No symptoms or risk factors identified. Assessment: 01:00 Reassessment: SEE TRIAGE ASSESSMENT. br2 Vital Signs: 00:55 BP 148 / 87; Pulse 82; Resp 18; Temp 97.2; Pulse Ox 100% ; Weight 68.04 kg; Height 5 br2 ft. 3 in. ; Pain 6/10; 03:00 BP 140 / 80; Pulse 80; Resp 20; Pulse Ox 100% ; br2 00:55 Body Mass Index 26.57 (68.04 kg, 160.02 cm) br2 00:55 Pain Scale: Adult br2 Shen Coma Score: 21:29 Eye Response: spontaneous(4). Motor Response: obeys commands(6). Verbal Response: sp4 oriented(5). Total: 15. ED Course: 00:54 Patient arrived in ED. gm2 00:58 Triage completed. br2 01:00 Patient has correct armband on for positive identification. Provided Education on: PLAN br2 OF CARE. 01:22 Reg Lisa MD is Attending Physician. sp4 02:21 US Abdomen Limited In Process Unspecified. EDMS 02:21 US OB Limited In Process Unspecified. EDMS 03:38 Olinda Arango, PITER is Primary Nurse. br2 04:17 Osorio Salmeron MD is Referral Physician. sp4 04:20 No provider procedures requiring assistance completed. Patient did not have IV access br2 during this emergency room visit. Administered Medications: 03:20 Drug: Acetaminophen PO 1000 mg PO once Route: PO; br2 04:00 Follow up: Response: No adverse reaction br2 03:38 Not Given (Patient Refused): ondansetron 4 mg IVP once; over 2 minutes br2 03:38 Not Given (Patient Refused): ns 0.9% 1000 ml IV at 1 bolus Per protocol; to be given as br2 a bolus over 60 minutes Outcome: 04:16 Discharge ordered by . sp4 04:20 Discharged to home ambulatory, br2 04:20 Condition: good 04:20 Discharge instructions given to patient, Instructed on discharge instructions, Demonstrated understanding of instructions, follow-up care, medications, Prescriptions given X 1, 05:10 Patient left the ED. br2 Signatures: Dispatcher [employer] EDReg Barrera MD MD sp4 Ruthann Comer gm2 Olinda Arango RN RN br2 Corrections: (The following items were deleted from the chart) 01:01 00:55 Chief complaint: Patient states: EPIGASTRIC PAIN AND RADIATES TO BACK, SOB br2 br2
[2024-08-28 05:14] VITALS: TEMP 97.2; O2SAT 100
[2024-08-28 05:15] VITALS: BP 140/80
--- NOTE | 2024-08-28 08:01 | RAD REPORT ---
EXAM: US LIMITED HISTORY: 19 years Female 27 weeks EGA COMPARISON: None TECHNIQUE: Multiple grayscale and color Doppler images were obtained in a transabdominal pelvic ultra sound. Spectral analysis of the Doppler waveforms of the ovaries were performed. FINDINGS: Single viable IUP measuring 27 week 3 day with KAILASH of 11/24/2024. Cephalic positioning heart rate: 145 BPM Femur length: 5.1 cm MICHELL: 14.1 cm, maximum vertical pocket: 4.6 cm Cervix: 3.7 cm. Closed No free fluid is seen in the pelvis. RIGHT OVARY: Nonvisualized, possibly obscured by bowel gas. LEFT OVARY: Nonvisualized, possibly obscured by bowel gas. IMPRESSION: Single live intrauterine with estimated age of 27 w 3 d. MICHELL within normal limits. Closed cervix. Electronically signed by: Kel Michael MD 08/28/2024 05:45 AM CDT RP Due to temporary technical issues with the PACS/Sendmail reporting system, reports are being gemma d by the in-house radiologist without review as a courtesy to ensure prompt reporting the interpreting radiologist is fully responsible for the content of the report. Transcribed Date/Time: 08/28/2024 8:00 AM
--- NOTE | 2024-08-28 08:01 | RAD REPORT ---
PROCEDURES: US ABDOMEN LIMITED CLINICAL HISTORY: ABD PAIN TECHNIQUE: Limited ultrasound of the gallbladder. COMPARISON: None. FINDINGS: LIVER: Normal size and echogenicity. No masses seen. GALLBLADDER: Stones or sludge present within the gallbladder. No gallbladder wall thickening. No sono graphic Rodriguez's sign. No pericholecystic fluid. BILE DUCTS: Intrahepatic and extrahepatic bile ducts appear normal. Measured near the hepatis, the co mmon bile duct is 4 mm. ASCITES: No ascites. ADDITIONAL FINDINGS: None. IMPRESSION: Cholelithiasis and sludge but no ancillary findings to suggest acute cholecystitis. Electronically signed by: Kel Michael MD 08/28/2024 05:38 AM CDT RP Due to temporary technical issues with the PACS/[employer] reporting system, reports are being gemma d by the in-house radiologist without review as a courtesy to ensure prompt reporting the interpreting radiologist is fully responsible for the content of the report. Transcribed Date/Time: 08/28/2024 8:01 AM
== END 2024-08-28 05:10 | disposition home or self-care (01) ==
LOC: ER 00:50
DX: O99.612 Diseases of the digestive system complicating pregnancy, second trimester (principal); K80.80 Other cholelithiasis without obstruction; Z3A.27 27 weeks gestation of pregnancy
CPT/HCPCS: 76705; 76815

== ENCOUNTER 2024-10-12 10:10 | Emergency (ER) | payer OTHER ==
--- OUTSIDE RECORDS SUMMARY | 2024-10-12 10:13 | XMS REPORT | Continuity of Care Document ---
Author Name Unknown Address [address] [facility] [address] [place] [address] [facility] Address [address] [facility] [address] [place] [address] Care Team Providers Care Composition Tile Layer Name Role Phone Pcp, Patient Does Not Have A Primary Care Physic mason GALINA WOLFE Attending Clinician Unavailable BEATRIZ BAUTISTA Attending Clinician Unavailchepe [facility] + Beatriz Bautista CNM Attending Clinician [phone] MAGUE RICHEY Attending Clinician Unavailable MAGUE RICHEY Attending Clinician Unavailable Ultrasound, Ang-m Attending Clinician UnavailMague Chase MD Attending Clinician [phone] ALAINA CHAPMAN Attending Clinician Unavail able OCTAVIANO GAO Attending Clinician Unavailable OCTAVIANO GAO Attending Clinician Unavailable OCTAVIANO GAO Attending Clinician Unavailable Octaviano Gao MD Attending Clinician [phone] Lab, Ang-Rmp Attending Clinician Unavailable Doctor Unassigned, Omer Attending Clinician SULMA Ayala Attending Clinician Unavailable GAVIN RIVERA Attending Clinician UnavailGAVIN Reyes Attending Clinician Andrea landry Payers Payer Name Policy Type Policy Number Effective Date Expirati on Date Source [facility] [id number] 2022 00:00:00 Problems Condition Name Condition Details Condition Category Status Onset Date Resolution Date Last Treatment Date Treating Clinician Comments Source Supervisio n of high risk in first trimester Supervisio n of high risk in first trimester Disease Active 2023-06 00:00: 00 [facility] Allergies, Adverse Reactions, Alerts Allergy Name Allergy Type Status Severity Reaction(s) Onset Date Inactive Date Treating Clinician Comments Source NO KNOWN ALLERGIE S Drug Class Active [facility] Social History Social Habit Start Date Stop Date Quantity Comments Source ASSERTION 2024-03-03 00:00:00 [facility] Alcoholic beverage intake 2024-10-03 00:00:00 2024-10-03 00:00:00 Ex-drinker (finding) [facility] Tobacco use and exposure 2024-04-30 00:00:00 2024-04-30 00:00:00 Smokeless tobacco non-user [facility] History of Social function 2024-04-30 00:00:00 2024-04-30 00:00:00 [facility] Sex assigned at 2003 00:00:00 2005 00:00:00 [facility] Smoking Status Start Date Stop Date Source Never smoked tobacco [facility] Medications Ordered Medication Name Filled Medication Name Start Date Stop Date Current Medication? Ordering Clinician Indication Dosage Frequency Signature (SIG) Comments Components Source Nitrofurant oin&Nit. Macrocryst (MACROBID) 100 mg capsule 2023-06 00:00: 00 06-07 05:59 :00 No [id number] 100mg Take 1 capsule by mouth in the morning and 1 capsule in the evening. Do all this for 10 days. [facility] PNV 67-iron ps-folate no.1-dha (VITAFOL ULTRA) 29 mg iron- 1 mg-200 mg Cap 2023-06 00:00: 00 Yes [id number] 1{each} Take 1 Each by mouth in the morning. [facility] Immunizations Ordered Immunization Name Filled Immunization Name Date Status Comments Source TDAP 2024-09-19 00:00:00 Completed [facility] Vital Signs Vital Name Observation Time Observation Value Comments S ource Systolic blood pressure 2024-10-03 21:05:00 135 mm[facility]Hg[facility] Diastolic blood pressure 2024-10-03 21:05:00 72 mm[Hg] [facility] Heart rate 2024-10-03 21:05:00 90 /min [facility] Body temperature 2024-10-03 21:05:00 36.5 Rosalind [facility] Respiratory rate 2024-10-03 21:05:00 16 /min [facility] Body height 2024-10-03 21:05:00 162.6 cm [facility] Body weight 2024-10-03 21:05:00 78.132 kg [facility] BMI 2024-10-03 21:05:00 29.57 kg/m2 [facility] Systolic blood pressure 2024-09-19 19:59:00 130 mm[Hg] [facility] Diastolic blood pressure 2024-09-19 19:59:00 78 mm[Hg] [facility] Heart rate 2024-09-19 19:59:00 99 /min [facility] Body temperature 2024-09-19 19:59:00 36.56 Rosalind [facility] Respiratory rate 2024-09-19 19:59:00 18 /min [facility] Body height 2024-09-19 19:59:00 162.6 cm [facility] Body weight 2024-09-19 19:59:00 74.957 kg [facility] BMI 2024-09-19 19:59:00 28.37 kg/m2 [facility] Systolic blood pressure 2024-07-25 21:54:00 118 mm[Hg] [facility] Diastolic blood pressure 2024-07-25 21:54:00 65 mm[Hg] [facility] Heart rate 2024-07-25 21:54:00 74 /min [facility] Body temperature 2024-07-25 21:54:00 36.39 Rosalind [facility] Body height 2024-07-25 21:54:00 162.6 cm [facility] Body weight 2024-07-25 21:54:00 68.629 kg [facility] BMI 2024-07-25 21:54:00 25.97 kg/m2 [facility] Systolic blood pressure 2024-06-27 21:03:00 134 mm[Hg] [facility] Diastolic blood pressure 2024-06-27 21:03:00 63 mm[Hg] [facility] Heart rate 2024-06-27 21:03:00 62 /min [facility] Body temperature 2024-06-27 21:03:00 36.94 Rosalind [facility] Respiratory rate 2024-06-27 21:03:00 16 /min [facility] Body height 2024-06-27 21:03:00 162.6 cm [facility] Body weight 2024-06-27 21:03:00 65.953 kg [facility] BMI 2024-06-27 21:03:00 24.96 kg/m2 [facility] Systolic blood pressure 2024-05-27 20:11:00 136 mm[Hg] [facility] Diastolic blood pressure 2024-05-27 20:11:00 78 mm[Hg] [facility] Heart rate 2024-05-27 20:11:00 80 /min [facility] Body temperature 2024-05-27 20:11:00 36.5 Rosalind [facility] Respiratory rate 2024-05-27 20:11:00 16 /min [facility] Body weight 2024-05-27 20:11:00 63.186 kg [facility] BMI 2024-05-27 20:11:00 23.91 kg/m2 [facility] Systolic blood pressure 2024-04-30 19:19:00 124 mm[Hg] [facility] Diastolic blood pressure 2024-04-30 19:19:00 58 mm[Hg] [facility] Heart rate 2024-04-30 19:19:00 61 /min [facility] Body temperature 2024-04-30 19:19:00 36.61 Rosalind [facility] Respiratory rate 2024-04-30 19:19:00 16 /min [facility] Body height 2024-04-30 19:19:00 162.6 cm [facility] Body weight 2024-04-30 19:19:00 61.236 kg [facility] BMI 2024-04-30 19:19:00 23.17 kg/m2 [facility] Procedures Procedure Date / Time Performed Performing Clinicia n Source POCT URINALYSIS 2024-10-03 21:08:00 Alaina Chapman [facility] SECOND AND THIRD TRIMESTER ULTRASOUND 2024-09-20 20:24:00 Alaina Chapman [facility] POCT URINALYSIS 2024-09-19 21:15:00 Alaina Chapman [facility] HIV 1/2 AG-AB WITH REFLEX 2024-09-19 20:56:00 Beatriz Bautista [facility] SYPHILIS IGG/IGM 2024-09-19 20:56:00 Beatriz Bautista [facility] TDAP VACCINE, >11 YRS, IM 2024-09-19 20:22:58 Beatriz Bautista [facility] SECOND AND THIRD TRIMESTER ULTRASOUND 2024-08-23 13:44:00 Alaina Chapman [facility] GLUCOSE 1 HOUR POST PRANDIAL 2024-08-15 18:53:00 Alaina Chapman [facility] CBC WITH DIFF 2024-08-15 18:53:00 Alaina Chapman [facility] SECOND AND THIRD TRIMESTER ULTRASOUND 2024-07-19 20:36:00 Alaina Chapman [facility] POCT URINALYSIS 2024-06-27 21:05:00 Alaina Chapman [facility] SECOND AND THIRD TRIMESTER ULTRASOUND 2024-06-12 21:11:00 Alaina Chapman [facility] NIPT - NON-INVASIVE TEST RESULTS 2024-06-06 21:57:49 Doctor Unassigned, Omer [facility] NIPT - NON-INVASIVE TEST RESULTS 2024-06-04 22:33:14 Doctor Unassigned, Omer [facility] NIPT - NON-INVASIVE TEST RESULTS 2024-06-03 18:38:00 Doctor Unassigned, Omer [facility] POCT URINALYSIS 2024-05-27 00:00:00 Alaina Chapman [facility] POCT TEST 2024-04-30 19:12:00 Brent Chapman [facility] POCT URINALYSIS W/O SPECIFIC GRAVITY 2024-04-30 19:12:00 Alaina Chapman [facility] Encounters Start Date/Time End Date/Time Encounter Type Admission Type Attending Clinicians Care Facility Care Department Encounter ID Source 2024-10-08 00:00:00 2024-10-08 17:00:09 Telephone Alaina Chapman [facility] [place] [employer] [facility] & CHILD [facility] 1..840.114 350.1.13.10 4.2.7.2.686 [id number] [facility] 2024-10-03 16:15:00 2024-10-03 16:24:39 Outpatient R BEATRIZ BAUTISTA [facility] [id number] [facility] 2024-10-03 16:15:00 2024-10-03 16:24:39 Routine Visit Beatriz Bautista [facility] [employer] [employer] [facility] & CHILD [facility] 1..840.114 350.1.13.10 4.2.7.2.686 [id number] [facility] 2024-09-25 00:00:00 2024-09-25 15:48:25 Abstract Alaina Chapman [facility] [place] [employer] [facility] & CHILD [facility] 1..840.114 350.1.13.10 4.2.7.2.686 [id number] [facility] 2024-09-24 00:00:00 2024-09-25 09:50:07 Telephone Beatriz Bautista [facility] [employer] [place] [employer] [facility] & CHILD [facility] 1..840.114 350.1.13.10 4.2.7.2.686 [id number] [facility] 2024-09-20 15:00:00 2024-09-20 15:25:30 Outpatient P MAGUE RICHEY SHANNON [facility] [id number] [facility] 2024-09-20 15:00:00 2024-09-20 15:25:30 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, Mague Sanchez [facility] [place] [place] [employer] [facility] CHILD [facility] 1..840.114 350.1.13.10 4.2.7.2.686 [id number] [facility] 2024-09-19 15:00:00 2024-09-19 15:57:18 Outpatient R BEATRIZ BAUTISTA [facility] [id number] [facility] 2024-09-19 15:00:00 2024-09-19 15:57:18 Routine Visit Beatriz Bautista [facility] [place] [employer] [facility] CHILD [facility] 1..840.114 350.1.13.10 4.2.7.2.686 [id number] [facility] 2024-09-05 15:45:00 2024-09-05 15:45:00 Outpatient R ALAINA CHAPMAN [facility] [id number] [facility] 2024-08-26 00:00:00 2024-08-26 07:27:29 Abstract Alaina Chapman [facility] [employer] [place] [employer] [facility]ILD [facility] 1..840.114 350.1.13.10 4.2.7.2.686 [id number] [facility] 2024-08-23 08:00:00 2024-08-23 08:56:37 Outpatient R OCTAVIANO GAO KARIN FOX, KARIN [facility] [id number] [facility] 2024-08-23 08:00:00 2024-08-23 08:56:37 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, Octaviano Lugo [facility] [employer] [employer] [facility] CHILD [facility] ..114 350.1.13.10 4.2.7.2.686 [id number] [facility] 2024-08-15 13:15:00 2024-08-15 13:57:06 Outpatient R BEATRIZ BAUTISTA [facility] [id number] [facility] 2024-08-15 13:15:00 2024-08-15 13:57:06 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 Lab[facility] 350.1.13.10 4.2.7.2.686 [id number] [facility] 2024-08-13 15:30:00 2024-08-13 16:15:09 Outpatient R ALAINA CHAPMAN [facility] [id number] [facility] 2024-07-25 15:30:00 2024-07-25 16:15:08 Outpatient R ALAINA CHAPMAN [facility] [id number] [facility] 2024-07-25 15:30:00 2024-07-25 16:15:08 Routine Visit Alaina Chapman [facility] [employer] [employer] [facility] CHILD [facility] ..114 350.1.13.10 4.2.7.2.686 [id number] [facility] 2024-07-25 00:00:00 2024-07-25 13:04:27 Abstract Alaina Chapman [facility] [employer] [place] [employer] [facility] & CHILD [facility] .0.114 350.1.13.10 4.2.7.2.686 [id number] [facility] 2024-07-19 00:00:00 2024-07-23 14:40:15 Telephone Alaina Chapman [facility] [employer] [place] [employer] [facility] & CHILD [facility] 1.2.840.114 350.1.13.10 4.2.7.2.686 [id number] [facility] 2024-06-03 00:00:00 2024-07-20 06:24:50 Orders Only Doctor Unassigned, Omer Doctor Unassigned, Omer [facility] ([place]) 1.2.840.114 350.1.13.10 4.2.7.2.686 [id number] [facility] 2024-06-04 00:00:00 2024-07-20 06:24:28 Orders Only Doctor Unassigned, Omer Doctor Unassigned, Omer [facility] ([place]) 1.2.840.114 350.1.13.10 4.2.7.2.686 [id number] [facility] 2024-06-06 00:00:00 2024-07-20 06:24:06 Orders Only Doctor Unassigned, Omer Doctor Unassigned, Omer [facility] ([facility] 1.2.840.114 350.1.13.10 4.2.7.2.686 [id number] [facility] 2024-07-19 13:00:00 2024-07-19 14:38:09 Outpatient P ALAINA CHAPMAN [facility] [id number] [facility] 2024-07-19 13:00:00 2024-07-19 14:38:09 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, Lauro-Alaina Montanez [facility] [place] [employer] [facility] & CHILD [facility] 1.2.840.114 350.1.13.10 4.2.7.2.686 [id number] [facility] 2024-07-15 00:00:00 2024-07-15 13:41:55 Telephone Adela Alaina Dc [facility] [employer] [employer] [facility] & CHILD [facility] 1..114 350.1.13.10 4.2.7.2.686 [id number] [facility] 2024-06-27 15:00:00 2024-06-27 15:15:00 Routine Visit Alaina Chapman [facility] [employer] [employer] [facility] & CHILD [facility] ..114 350.1.13.10 4.2.7.2.686 [id number] [facility] 2024-06-27 15:00:00 2024-06-27 15:00:00 Outpatient R ALAINA CHAPMAN [facility] [id number] [facility] 2024-06-25 14:45:00 2024-06-25 14:45:00 Outpatient R ALAINA CHAPMAN [facility] [id number] [facility] 2024-06-13 00:00:00 2024-06-13 11:56:15 Abstract Alaina Chapman [facility] [employer] [employer] CHILD [facility] ..114 350.1.13.10 4.2.7.2.686 [id number] [facility] 2024-06-12 15:00:00 2024-06-12 15:36:53 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, Ang-Mfm Alaina Chapman [facility] [employer] [place] [employer]ILD [facility] ..114 350.1.13.10 4.2.7.2.686 [id number] [facility] 2024-06-12 15:00:00 2024-06-12 15:36:53 Outpatient P ALAINA CHAPMAN [facility] [id number] [facility] 2024-05-27 14:15:00 2024-05-27 14:48:42 Outpatient R ALAINA CHAPMAN [facility] [id number] [facility] 2024-05-27 14:15:00 2024-05-27 14:48:42 Routine Visit Alaina Chapman [facility] [employer] [place] [employer] & CHILD [facility] 1.2.840.114 350.1.13.10 4.2.7.2.686 [id number] [facility] 2024-05-15 00:00:00 2024-05-15 14:30:06 Telephone Alaina Chapman [facility] [employer] [place] [employer] & CHILD [facility] 1.2.840.114 350.1.13.10 4.2.7.2.686 [id number] [facility] 2024-05-07 00:00:00 2024-05-07 14:57:00 Telephone Adela Alaina Dao [facility] [employer] [facility] & CHILD [facility] 1..840.114 350.1.13.10 4.2.7.2.686 [id number] [facility] 2024-04-30 13:45:00 2024-04-30 14:14:52 Outpatient R ALAINA CHAPMAN [facility] [id number] [facility] 2024-04-30 13:45:00 2024-04-30 14:14:52 Initial Visit Alaina Chapman [facility] [employer] [facility] & CHILD [facility] 1..840.114 350.1.13.10 4.2.7.2.686 [id number] [facility] 2024-04-22 13:45:00 2024-04-22 13:45:00 Outpatient R BEATRIZ BAUTISTA [facility] [id number] [facility] 2023-12-26 14:30:00 2023-12-26 14:30:00 Outpatient R SULMA ARANGO [facility] [id number] [facility] 2022-11-29 15:30:00 2022-11-29 15:30:00 Outpatient GAVIN GONZALEZ CHERYAL [facility] [id number] [facility] Results Test Description Test Time Test Comments Results Result Co mments Source [facility] [id number] 21:16:00* Test Item Value Reference Range Interpretation Comme nts POCT U SP GRAV (test code = 3255) . 1.005-1.025 POCT PH U (test code = 3254) 6 mg/dl 5-8 POCT U LEUK EST (test code = 3263) Neg Negative - Negative POCT U NIT (test code = 3262) Neg Negative - Negati ve POCT U PROT (test code = 3259) Trace Negative - Negat chandan POCT U GLU (test code = 3256) Nml Negative - Negati ve POCT U KETONE (test code = 3258) None Negative - Neg ative POCT U UROBILI (test code = 3260) . 0.2-1 POCT U BILI (test code = 3261) . Negative - Negat chandan POCT U BLD (test code = 3257) Trace Negative - Negati ve POCT U COLOR (test code = 3266) . POCT U APPEAR (test code = 3267) . [facility] W SPECIFIC [id number] 21:05:00* Test Item Value Reference Range Interpretation Comme nts POCT U SP GRAV (test code = 3255) . 1.005-1.025 POCT PH U (test code = 3254) . 5-8 POCT U LEUK EST (test code = 3263) . Negative - N egative POCT U NIT (test code = 3262) . Negative - Negati ve POCT U PROT (test code = 3259) TRACE Negative - Negat chandan POCT U GLU (test code = 3256) NEG Negative - Negati ve POCT U KETONE [...] U APPEAR (test code = 3267) . [facility] - NON-INVASIVE TEST RESULTS 2024-06-06 21:57:49Ordered by an unspecified provider.[facility] - NON-INVASIVE TEST [id number] 22:33:14 Ordered by an unspecified provider.[facility] - NON- INVASIVE TEST [id number] 18:38:00Ordered by an unspecified provider.[facility] URINALYSIS W SPECIFIC GRAVITY 2024-05-27 20:12:00* Test [...] U APPEAR (test code = 3267) . [facility] Urinalysis w/o Specific [id number] 19:12:00* Test Item Value Reference Range Interpretation [...] = 3257) 250 Negative - Negati ve [facility] [id number] 19:12:00* Test Item Value Reference Range Interpretation Comme nts POCT PREG (test code = 1605) Positive On board controls acceptable with C Line (test code = 3574) Yes POCT PREG LOT # (test code = 3575) POCT PREG TEST DATE ( test code = 3576) [facility] Notes Date/Time Note Provider Source 2024-10-08 16:54:28 letter [facility] 2024-09-25 09:49:27 Attempt#3. Called, no answer. Left VM. BREONNA JONES RN 09/25/2024 9:49 AM T Breonna Jones RN [facility] 2024-09-25 07:27:50 Attempt#2. Called, no answer. Left VM. BREONNA JNOES RN 09/25/2024 7:28 AM T [facility] 2024-09-24 12:54:09 Safe med list sent. Called pt, no answer. Left lakisha. Jaquelin Willson RN 09/24/24 12:54 PM T [facility] 2024-09-24 11:36:24 Blanche Gentile is a 19 year old female having heart burn and would like to know if can take pepcid. Please contact patient at [phone] (home) Izabel Singh [facility] 2024-07-19 14:39:16 Patient states that she went to the ER and was told she has gallstones just wanted to let us know. HANDISE COLLECTOR Alin Covington [facility] 2024-07-15 13:35:53 Called pt, pt reports [...] understanding. Jaquelin Willson RN 07/15/24 1:41 PM HANDISE COLLECTOR Jaquelin Willson RN [facility] 2024-07-15 12:46:29 Blanche Gentile is a 19 year old female Pt states she had pressure under her sternum x last night, she was sweating, shivering and almost blacking out, better today but body sore. Would like to speak to nurse [phone] (home) HANDISE COLLECTOR Giulia Romero [facility] 2024-05-15 14:26:41 Pt reports cramping to [...] understanding. Zuleika Mosquera LVN 05/15/2024 2:29 PM HANDISE COLLECTOR Zuleika Mosquera [facility] 2024-05-15 14:18:55 Blanche Gentile is a 19 year old female is requesting to speak with a nurse. She says that she is having some cramping but no other symptoms. Not currently cramping at this time. Please call. HANDISE COLLECTOR Nan Keller [facility] 2024-05-07 14:56:48 Called patient, notified patient positive for UTI. Educated patient on antibiotics, good perineal hygiene, and increasing fluids. Pt verbalized understanding. Zuleika Mosquera LVN 05/07/2024 2:56 PM HANDISE COLLECTOR Zuleika Mosquera [facility] 2024-05-07 14:46:25 Please notify the patient of UTI, meds have been sent to the pharmacy. Please advise the patient on good perineal hygiene, drinking plenty of water, and completing the entire course of treatment. GÓMEZ Dominguez 05/07/2024 2:46 PM [facility]
--- NOTE | 2024-10-12 10:53 | EDPHYS ---
Physician Documentation [facility] Name: Vandana Lynn Age: 19 yrs Sex: Female : 2005 Arrival Date: 10/12/2024 Time: 10:10 Bed 13 Private MD: ED Physician Abel Butler HPI: 10/12 10:24 This 19 yrs old Female presents to ER via Ambulatory with complaints of Ear Pain - RT. rn 10:24 The patient presents with a fullness, hearing loss. The complaints affect the right rn ear. Onset: The symptoms/episode began/occurred yesterday. Severity of symptoms: At their worst the symptoms were mild in the emergency department the symptoms are unchanged. The patient has not experienced similar symptoms in the past. Patient reports right ear fullness and decreased hearing. Denies pain. No trauma. Tried to irrigate right ear and did not alleviate symptoms. No fever or chills. No drainage. No bleeding. Left ear is fine. No runny nose or cough.. 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 - Infectious Disease History:: Denies. - Social history:: Smoking status: Reported history of juuling and/or vaping. - Family history:: not pertinent. - Hospitalizations: : No recent hospitalization is reported. ROS: 10:24 Constitutional: Negative for fever, chills, and weight loss, ENT: Positive for right rn ear fullness and decreased hearing Neuro: Negative for headache, weakness, numbness, tingling, and seizure, Exam: 10:24 Constitutional: This is a well developed, well nourished patient who is awake, alert, rn and in no acute distress. ENT: Left ear exam normal. Right ear exam shows cerumen impaction. Vital Signs: 10:23 BP 131 / 71; Pulse 87; Resp 18; Temp 97.5; Pulse Ox 99% on R/A; Weight 81.65 kg; Height ph 5 ft. 4 in. ; 11:00 BP 128 / 68; Pulse 81; Resp 17; Temp 98.1; Pulse Ox 100% ; ph 10:23 Body Mass Index 30.90 (81.65 kg, 162.56 cm) ph Procedures: 10:51 Performed Right ear irrigation and cerumen disimpaction. Right ear cerumen disimpaction rn performed using 18-gauge Angiocath and one-to-one solution of hydrogen peroxide and normal saline. Curette also used to remove cerumen. Moderate amount of cerumen removed, patient tolerated well and states hearing is better. For remainder of cerumen will continue Debrox and irrigation at home.. MDM: 10:14 Medical Screening Exam initiated rn 10:51 Differential diagnosis: cerumen impaction. Data reviewed: vital signs, nurses notes, rn and as a result, I will discharge patient. Counseling: I had a detailed discussion with the patient and/or guardian regarding the historical points, exam findings, and any diagnostic results supporting the discharge/admit diagnosis, the need for outpatient follow up, to return to the emergency department if symptoms worsen or persist or if there are any questions or concerns that arise at home. Response to treatment: the patient's symptoms have mildly improved after treatment, and as a result, I will discharge patient. Special discussion: I discussed with the patient/guardian in detail that at this point there is no indication for admission to the hospital. It is understood, however, that if the symptoms persist or worsen the patient needs to return immediately for re-evaluation. Based on the history and exam findings, there is no indication for further emergent testing or inpatient evaluation. I discussed with the patient/guardian the need to see the ENT specialist for further evaluation of the symptoms. ED course: Moderate amount of cerumen removed. For remainder of cerumen will continue Debrox at home. If symptoms do not improve needs to follow-up with ENT.. 10/12 10:22 Order name: [facility] [place]. Order: irrigate ear; Complete Time: 11:03 rn Administered Medications: No medications were administered Disposition Summary: 10/12/24 10:53 Discharge Ordered Notes: Location: Home rn Problem: new rn Symptoms: have improved rn Condition: Stable rn Diagnosis - Impacted cerumen, right ear rn Followup: rn - With: Payton Carter MD - When: As needed - Reason: Recheck today's complaints, Re-evaluation by your physician Discharge Instructions: - Discharge Summary Sheet rn - Earwax Buildup, Adult rn - Ear Irrigation rn Forms: - Medication Reconciliation Form rn - Antibiotic airborne and air delivery specialist - Prescription Opioid Use rn - Patient Portal Instructions rn - Leadership Thank You Letter rn Prescriptions: - Augmentin 875-125 mg Oral Tablet - take 1 tablet ORAL route every 12 hours for 10 days; 20 tablet; Refills: 0, rn Product Selection Permitted Signatures: Abel Butler MD MD rn Hall, Patricia, RN RN ph Corrections: (The following items were deleted from the chart) 10:26 10:24 Constitutional: Negative for fever, chills, and weight loss, ENT: Positive for rn right ear fullness and decreased hearing rn
--- NOTE | 2024-10-12 10:53 | ER ---
Nurse's Notes [facility] Name: Vandana Lynn Age: 19 yrs Sex: Female : 2005 Arrival Date: 10/12/2024 Time: 10:10 Bed 13 Private MD: Diagnosis: Impacted cerumen, right ear Presentation: 10/12 10:18 Chief complaint: Patient states: R ear pain, states, " I can't hear out of it, I'm ph pretty sure I have an ear infection.". Coronavirus screen: Vaccine status: Patient reports being unvaccinated. Ebola Screen: No symptoms or risks identified at this time. Initial Sepsis Screen: Does the patient meet any 2 criteria? No. Patient's initial sepsis screen is negative. Does the patient have a suspected source of infection? No. Patient's initial sepsis screen is negative. Risk Assessment: Do you want to hurt yourself or someone else? Patient reports no desire to harm self or others. Onset of symptoms was October 12, 2024. 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 - Infectious Disease History:: Denies. - Social history:: Smoking status: Reported history of juuling and/or vaping. - Family history:: not pertinent. - Hospitalizations: : No recent hospitalization is reported. Screenin:28 [facility] ED Fall Risk Assessment (Adult) History of falling in the last 3 months, ph including since admission No falls in past 3 months (0 pts) Confusion or Disorientation No (0 pts) Intoxicated or Sedated No (0 pts) Impaired Gait No (0 pts) Mobility Assist Device Used No (0 pt) Altered Elimination No (0 pt) Score/Fall Risk Level 0 - 2 = Low Risk Maintained a safe environment, Provided non-skid footwear, Hourly rounding (assess needs \\T\\ fall precautionary measures) done. Abuse screen: Denies threats or abuse. Nutritional screening: No deficits noted. Tuberculosis screening: No symptoms or risk factors identified. Assessment: 10:28 General: Appears in no apparent distress. Behavior is calm, cooperative, appropriate ph for age, Reports R ear pain, states, " I can't hear out of it, I'm pretty sure I have an ear infection.". Pain: Complains of pain in right ear Pain does not radiate. Pain currently is 4 out of 10 on a pain scale. Quality of pain is described as aching, Pain began gradually, Is continuous. Neuro: Level of Consciousness is awake, alert, obeys commands, Oriented to person, place, time, situation, Appropriate for age. Cardiovascular: Patient's skin is warm and dry. Respiratory: Airway is patent Respiratory effort is even, unlabored, Respiratory pattern is regular, symmetrical. GI: No signs and/or symptoms were reported involving the gastrointestinal system. : No signs and/or symptoms were reported regarding the genitourinary system. EENT: Reports pain in right ear. Derm: Skin is intact, is healthy with good turgor, Skin is pink, warm \\T\\ dry. Musculoskeletal: No signs and/or symptoms reported regarding the musculoskeletal system. Vital Signs: 10:23 BP 131 / 71; Pulse 87; Resp 18; Temp 97.5; Pulse Ox 99% on R/A; Weight 81.65 kg; Height ph 5 ft. 4 in. ; 11:00 BP 128 / 68; Pulse 81; Resp 17; Temp 98.1; Pulse Ox 100% ; ph 10:23 Body Mass Index 30.90 (81.65 kg, 162.56 cm) ph ED Course: 10:13 Patient arrived in ED. cj3 10:14 Abel Butler MD is Attending Physician. rn 10:18 Fina Vieira RN is Primary Nurse. ph 10:20 Triage completed. ph 10:20 Arm band placed on Patient placed in an exam room. ph 10:28 Patient has correct armband on for positive identification. Bed in low position. Call ph light in reach. Side rails up X 1. Provided Education on: POC. Verbalized understanding.. Client placed on continuous cardiac and pulse oximetry monitoring. NIBP monitoring applied. Pulse ox on. NIBP on. 10:28 No provider procedures requiring assistance completed. ph 10:52 Payton Carter MD is Referral Physician. rn 11:02 Patient did not have IV access during this emergency room visit. ph Administered Medications: No medications were administered Medication: : VIS not applicable for this client. ph Outcome: 10:53 Discharge ordered by . rn 11:02 Discharged to home ambulatory, ph 11:02 Condition: stable 11:02 Discharge instructions given to patient, Instructed on discharge instructions, follow up and referral plans. medication usage, Demonstrated understanding of instructions, follow-up care, medications, Prescriptions given X 1, 11:03 Patient left the ED. ph Signatures: Abel Butler MD MD rn Hall, Patricia, RN RN ph Johnson, Celeste [email or web address] Corrections: (The following items were deleted from the chart) 10:18 Chief complaint: Patient states: R ear pain, states, " I can't hear out of it, ph I'm pretty sure I have an ear infection." ph
[2024-10-12 11:10] VITALS: BP 128/68; TEMP 98.1; O2SAT 100
== END 2024-10-12 11:03 | disposition home or self-care (01) ==
LOC: ER 10:10
DX: H61.21 Impacted cerumen, right ear (principal)
CPT/HCPCS: 99283